=== PATIENT | male | born 1960 | race African-American/Black ===

== ENCOUNTER 2022-12-21 10:29 | Outpatient (CLI) | payer BC, SELFPAY ==
--- NOTE | ~2022-12-21 | MR_ITS ---
EXAMINATION: MR pelvis wo/w con DATE: 12/21/2022 11:49 INDICATION: Prostate cancer. TECHNIQUE: Magnetic resonance imaging (MRI) of the pelvis was performed without and with 14 mL MultiH ance intravenous contrast. COMPARISON: None. FINDINGS: There are no dilated loops of bowel. The bladder is markedly distended. The prostate is mildly enlarg ed. There are no pathologically enlarged lymph nodes. There is no free intraperitoneal fluid. IMPRESSION: 1. Mildly enlarged prostate. No evidence of metastatic disease. Reviewed, dictated and finalized at location A.
== END 2022-12-21 10:30 | disposition home or self-care (01) ==
PROVIDERS: PCP Nurse Practitioner Family; Visit Provider Radiology Radiation Oncology
DX: C61 Malignant neoplasm of prostate (principal)
CPT/HCPCS: 72197; A9577

== ENCOUNTER 2022-12-30 15:00 | Outpatient (CLI) | payer BC, SELFPAY ==
--- NOTE | ~2022-12-30 | US_ITS ---
EXAMINATION: US renal BI DATE: 12/30/2022 15:37 INDICATION: Malignant neoplasm of the prostate TECHNIQUE: Multiple ultrasound grayscale images of the kidneys were obtained. COMPARISON: None. FINDINGS: The right kidney measures 11.6 x 4.8 x 5.3 cm. The left kidney measures 10.5 x 4.5 x 4.6 cm. The kidn eys demonstrate normal echogenicity. There is no hydronephrosis in either kidney. No stones identifi ed. The bladder is normal with bilateral ureteral jets visualized on color Doppler. 1.7 cm and 1.3 cm anechoic cyst in the liver. IMPRESSION: 1. Normal kidneys without hydronephrosis. Reviewed, dictated and finalized at location A.
== END 2022-12-30 15:01 | disposition home or self-care (01) ==
LOC: ANHIMG 15:06
PROVIDERS: PCP Nurse Practitioner Family; Visit Provider Urology
DX: C61 Malignant neoplasm of prostate (principal)
CPT/HCPCS: 76775

== ENCOUNTER 2023-05-27 16:53 | Inpatient (IN) | payer BC, SELFPAY ==
[2023-05-27] VITALS (12 sets, daily range): BP systolic 147–175; BP diastolic 98–117; PULSE 81–97; RESP 16–26; TEMP 36.4–36.6; O2SAT 93–100; BMI 23.6
--- NOTE | ~2023-05-27 | US_ITS ---
EXAMINATION: US venous doppler [facility] DATE: 05/27/2023 18:18 INDICATION: Bilateral lower limb swelling TECHNIQUE: Rivera scale images without and with compression and Doppler images of the bilateral lower e xtremity veins were obtained. COMPARISON: None FINDINGS: The right common femoral vein, profunda femoral vein, femoral vein, popliteal vein, peroneal trunk, p osterior tibial veins, and greater saphenous vein are patent. The left common femoral vein, profunda femoral vein, femoral vein, popliteal vein, peroneal trunk, po sterior tibial veins, and greater saphenous vein are patent. IMPRESSION: 1. Patent bilateral lower extremity veins. No evidence of deep venous thrombosis. Reviewed, dictated and finalized at location F. LE SCM CONSULTANT IMPRESSION: 1. Patent bilateral lower extremity veins. No evidence of deep venous thrombosi s.
--- NOTE | ~2023-05-27 | CT_ITS ---
EXAMINATION: CTA chest PE abdomen pel DATE: 05/27/2023 18:26 INDICATION: Shortness of breath, TECHNIQUE: Computed tomography angiography (CTA) of the chest was performed with 100 mL Omnipaque-350 intravenous contrast timed to evaluate the pulmonary arteries. Subsequent postcontrast images of the abdomen and pelvis are obtained. Coronal maximum intensity projection 3D-reconstructions were create d by the technologist. The dose-length product (DLP) was 978.43 mGy-cm. Automated exposure control an d iterative reconstruction technique were employed. COMPARISON: None. FINDINGS: CTA CHEST: The pulmonary arteries are well-opacified. No pulmonary embolism is identified. There are small to moderate-sized pleural effusions. Cardiomegaly is noted. There is dependent atelectasis of t he lungs. There is no pneumothorax. Polyps are noted in the maxillary sinuses. No pathologically enla rged thoracic lymph nodes are identified. There is moderate thoracic spondylosis. ABDOMEN/PELVIS CT: There is heterogeneous enhancement of the liver which could reflect passive conges tive change. Cysts of the liver measure up to 16 mm in the right hepatic lobe. The gallbladder, pancr eas, and adrenal glands are normal. Heterogeneous mass of the spleen likely related to phase of contr ast. The left kidney is unremarkable. There is a 4 mm cyst of the right kidney. No pathologically enl arged abdominal or pelvic lymph nodes are identified. No free intraperitoneal gas or evidence of graeme l obstruction. The appendix is normal. There is diffuse anasarca. IMPRESSION: 1. No pulmonary embolus identified. 2. Small to moderate-sized pleural effusions with associated atelectasis of the lungs. 3. Diffuse anasarca. 4. Cardiomegaly. Reviewed, dictated and finalized at location F. CISE EQUIPMENT SPECIALIST
--- NOTE | ~2023-05-27 | XR_ITS ---
EXAMINATION: XR chest 2V DATE: 05/27/2023 17:56 INDICATION: Shortness of breath TECHNIQUE: AP and lateral views of the chest are obtained. COMPARISON: None available FINDINGS: Cardiomegaly is noted. There are small pleural effusions. There are minimal airspace opacit ies of the lung bases, left greater than right. There is no pneumothorax. There is mild thoracic spon dylosis. IMPRESSION: 1. Cardiomegaly. 2. Small pleural effusions with associated bibasilar airspace opacities, atelectasis versus pneumonia . Reviewed, dictated and finalized at location F. MANAGEMENT SUPERVISOR IMPRESSION: 1. Cardiomegaly. 2. Small pleural effusions with associated bibasilar airspace opacities, atelec tasis versus pneumonia.
--- NOTE | 2023-05-27 17:05 | ECG_ITS ---
Measurements Intervals [place] Rate: 93 P: 51 OR: 140 QRS: -14 QRSD: 97 T: 195 QT: 354 QTc: 440 Interpretive Statements SINUS RHYTHM LEFT ATRIAL ENLARGEMENT [-0.15mV P WAVE IN V1/V2] ST DEVIATION AND MODERATE T-WAVE ABNORMALITY, CONSIDER LATERAL ISCHEMIA [-0.1+ mV T WAVE IN I/aVL/V5/V6] ST DEVIATION AND MODERATE T-WAVE ABNORMALITY, CONSIDER INFERIOR ISCHEMIA [-0.1+ mV T WAVE IN II/aVF] NO PREVIOUS ECG AVAILABLE FOR COMPARISON Electronically Signed On 05-27-2023 19:19:39 LAWNMOWER REPAIR MECHANIC by Kezia Lni M.D.
--- NOTE | 2023-05-27 17:23 | ED.SOB ---
HPI - SOB/Dyspnea General Chief Complaint: Extremity Problem,Nontraumatic Stated Complaint: bilateral leg swelling/SOB Time Seen by Provider: 05/27/23 17:05 Source: patient Mode of arrival: ambulatory Limitations: no limitations History of Present Illness HPI Narrative: This is a 62 year old male that presents to the ER for dyspnea. Reports exertional dyspnea ongoing over the last 2 months. Reports recently finishing radiation for prostate cancer. He has also been feeling bloated and nauseous. Reports some diarrhe. Denies chest pain, vomiting. Related Data Home Medications Medication Instructions Recorded Confirmed glimepiride 1 mg tablet mg 05/27/23 metformin 500 mg tablet,extended mg PO 05/27/23 release 24 hr Allergies Allergy/AdvReac Type Severity Reaction Status Date / Time No Known Allergies Allergy Verified 05/27/23 17:04 Review of Systems Review of Systems: CONSTITUTIONAL: Denies fever CARDIOVASCULAR: Reports edema. Denies chest pain RESPIRATORY: Reports dyspnea. GASTROINTESTINAL: Reports abdominal pain, nausea and diarrhea. Denies vomiting All systems reviewed & are unremarkable except as noted in HPI and below PMFSH Past Medical History Medical History (Updated 05/27/23 @ 20:26 by Katherine Livingston PA-C) History of diabetes mellitus History of hypertension History of prostate cancer Social History Social History (Updated 05/27/23 @ 17:28 by Katherine Livingston PA-C) Smoking status: Never smoker Exam Narrative: GENERAL: Well-appearing, well-nourished, and in no acute distress. HEAD: Normocephalic, atraumatic. EYES: EOMI. ENT: Nares clear, no rhinorrhea or epistaxis. Mucous membranes moist. NECK: Supple. No adenopathy or masses. No JVD CHEST: No respiratory distress. Rales in the bilateral lower lobes. No wheezes or rhonchi HEART: Regular rate and rhythm. No murmur heard. Normal peripheral pulses. ABDOMEN: Soft, nontender, nondistended, normal active bowel sounds. EXTREMITIES: Normal range of motion. 1+ pitting edema to the bilateral lower extremities. Normal DP pulses. No erythema or warmth SKIN: Warm, dry, no rash. NEURO: No focal deficits. Alert and oriented x3. PSYCH: Normal mood and affect Course Course Emergency Course: Patient updated on his workup and agrees with plan of care Consultations Consultation #1: Spoke with hospitalist about patient and workup who accepts admission Date: 05/27/23 Vital Signs Vital signs: Vital Signs Temperature 97.5 F L 05/27/23 16:55 Pulse Rate 96 05/27/23 16:55 Respiratory Rate 18 05/27/23 16:55 Blood Pressure 164/107 H 05/27/23 16:55 Pulse Oximetry 98 05/27/23 16:55 Oxygen Delivery Room Air 05/27/23 16:55 Temperature 97.9 F 05/27/23 18:28 Pulse Rate 87 05/27/23 19:15 Respiratory Rate 16 05/27/23 19:15 Blood Pressure 148/98 H 05/27/23 18:46 Pulse Oximetry 98 05/27/23 19:15 Oxygen Delivery Room Air 05/27/23 16:55 MDM - SOB/Dyspnea MDM Narrative Medical decision making narrative: Patient presents to the emergency department for exertional dyspnea and lower extremity edema. Ongoing over the last 2 months. He is afebrile and nontoxic appearing. His vitals are stable. Patient with rales in the bilateral lower lobes and 1+ pitting edema to the bilateral extremities. CBC without leukocytosis. Metabolic panel with elevated blood glucose is 261. EKG shows T-wave inversions laterally. He does not have any chest pain. His baseline troponin was mildly elevated at 0.036. This will be trended. Elevation likely due to heart failure. His BNP is 8150. CTA chest without evidence of PE. Does show small to moderate bilateral pleural effusions with cardiomegaly. Bilateral lower extremity venous Doppler without evidence of DVT. Patient updated on his workup and agrees with plan of care. Will be admitted for further diuresis and workup. Spoke with hospitalist about patient and workup who accepts
[2023-05-27 17:35] LABS: Basophils Percent Auto 0.8 % (0.2-1.2); Eosinophils Absolute Auto 0.1 K/mm3 (0-0.3); Eosinophils Percent Auto 2.3 % (0-4.4); Hematocrit 45.8 % (42.0-52.0); Hemoglobin 14.9 g/dL (14.0-18.0); Immature Granulocyte Absolute 0.01 K/mm3 (0.00-0.031); Immature Granulocyte Percent A 0.3 % (0-0.5); Lymphocytes Absolute Auto 0.95 K/mm3 (0.9-3.2); Lymphocytes Percent Auto 23.8 % (18.3-44.2); Mean Corpuscular HGB Conc 32.5 g/dl (32-36); Mean Corpuscular Hemoglobin 29.6 pg (26-34); Mean Corpuscular Volume 90.9 fl (80-100); Mean Platelet Volume 11.8 fl (7.4-10.4); Monocytes Absolute Auto 0.4 K/mm3 (0.1-0.6); Monocytes Percent Auto 9.3 % (2.6-8.5); Neutrophils Absolute Auto 2.6 K/mm3 (1.3-6.7); Neutrophils Percent Auto 63.5 % (45.5-73.1); Platelet Count Result 242 k/mm3 (150-375); Red Blood Count 5.04 M/mm3 (4.6-6.20); Red Cell Distribution Width 12.6 % (11.5-14.5)
[2023-05-27 17:51] LABS: Alanine Aminotransferase 56 U/L (6-50); Albumin Level 3.9 g/dL (3.5-5.1); Alkaline Phosphatase 73 U/L (38-126); Anion Gap 3 mmol/L (8-16); Aspartate Amino Transferase 47 U/L (17-59); Bilirubin,Total 1.3 mg/dL (0.2-1.3); Blood Urea Nitrogen 18 mg/dL (9-20); Carbon Dioxide 31 mmol/L (22-30); Chloride 101 mmol/L (98-107); Estimated CRCL calculation 62 ml/min; Estimated Glomerular Filt Rate > 60; Glucose 251 mg/dL (65-110); Lipase 130 U/L (23-300); Potassium 4.2 mmol/L (3.4-5.0); Sodium 135 mmol/L (137-145)
[2023-05-27 17:55] LABS: INR 1.1; Prothrombin Time 14.3 Seconds (11.1-14.7)
[2023-05-27 17:56] LABS: Partial Thromboplastin Time 29.3 SECONDS (22.3-36.8)
[2023-05-27 18:02] LABS: NT Pro B Type Natriuretic Pept 8150 pg/mL (19.9-100); Troponin I 0.036 ng/mL (0.000-0.034)
[2023-05-27 18:05] LABS: D Dimer 0.77 ug/mL (<0.48)
[2023-05-27] MEDS: FUROSEMIDE INJ 40 MG/4 ML VIAL IV PUSH (20:11)
--- NOTE | 2023-05-27 20:39 | ECG_ITS ---
Measurements Intervals [place] Rate: 91 P: 52 VA: 143 QRS: -14 QRSD: 100 T: 198 QT: 357 QTc: 441 Interpretive Statements SINUS RHYTHM LEFT ATRIAL ENLARGEMENT [-0.15mV P-WAVE IN V1/V2] ST DEVIATION AND MODERATE T-WAVE ABNORMALITY, CONSIDER LATERAL ISCHEMIA [-0.1+ mV T- WAVE IN I/aVL/V5/V6] ST DEVIATION AND MODERATE T-WAVE ABNORMALITY, CONSIDER INFERIOR ISCHEMIA [-0.1+ mV T- WAVE IN II/aVF] COMPARED TO ECG 05/27/2023 17:30:52 NO SIGNIFICANT CHANGES Electronically Signed On 05-28-2023 15:38:07 KENO TERMINAL OPERATOR by Shannan Saleem M.D.
[2023-05-27 21:11] LABS: Troponin I 0.036 ng/mL (0.000-0.034)
--- NOTE | 2023-05-27 23:05 | PM.IMHP ---
H&P: HPI History of Present Illness Date/Time: 05/27/23 23:05 Chief Complaint: Leg swelling Narrative: 62-year-old male with a past medical history of hypertension and uncontrolled diabetes who presented to the ER via private vehicle with 1.5 to 2 months of progressive leg swelling and development of dyspnea on exertion. Patient reports a finished radiation therapy for his prostate cancer in February. Shortly after that time he began having some peripheral lower extremity swelling. His initially is swelling would go down at night but as time has progressed swelling has become more persistent it has gradually work his way up his legs and into his abdomen. It is been accompanied by dyspnea on exertion for the last 6 weeks or so. The dyspnea on exertion is getting progressively worse. He had denies any significant orthopnea. He denies any accompanying chest pain or palpitations. He does report increasing abdominal distension in his abdomen feels tight. He has been having normal bowel movements without any hematochezia or melena. He denies history of cirrhosis. He has not noticed any scrotal edema. He denies any episodes of chest pain that may have preceded onset of his swelling. He has not had any associated cough or congestion. He is a lifelong nonsmoker and denies any significant alcohol, stimulant use or exposures. He does have diabetes that was diagnosed last year at which time his A1c was 14. He has managed to get his A1c down to 8. He reports occasional tingling in his lower extremities but denies a diagnosis of peripheral neuropathy. Source of information comes from the patient who is a good historian and his significant other of over 20 years that is at bedside. Patient's case was discussed with his significant other (common all ) with the patient's permission. Review of Systems Review of Systems: 12 systems were reviewed with pertinent positives and negatives per HPI. Except as documented in the HPI, all other systems were reviewed and are negative. [facility] Past Medical History Medical History (Updated 05/28/23 @ 08:13 by Isis Rondon DO) Diabetes mellitus type 2 in nonobese Essential hypertension Prostate cancer Surgical History Surgical History (Updated 05/27/23 @ 23:14 by Isis Rondon DO) Hx of cholecystectomy Family History Family History (Updated 05/28/23 @ 08:11 by Isis Rondon DO) Other No significant family history Social History Social History (Updated 05/27/23 @ 23:16 by LAURA Hill Social History: Patient lives with his significant other of over 26 years. 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 He has 2 children ages 25 and 23. He denies any significant history of alcohol drug or tobacco use. Code status: Full code Surrogate decision maker: Smoking status: Never smoker Alcohol intake: never Substance use: never Do You Feel Safe in your Home?: Yes Lack of Transportation: No Lack of Food: Never True Current Housing: I Have Housing Concerned About Future Housing: No Difficulty Paying Gas/Electric Bills: No Difficulty Paying for Meds: No Currently Unemployed: No Education: High School Diploma/GED Difficulty w/ Childcare or Family Care: No Spiritual care concerns: No Meds Home Medications and Allergies Home Medications Medication Instructions Recorded Confirmed Type glimepiride 1 mg tablet 2 mg PO BIDAC 05/27/23 05/28/23 History metformin 500 mg tablet,extended 1,000 mg PO BID 05/27/23 05/28/23 History release 24 hr Allergies Allergy/AdvReac Type Severity Reaction Status Date / Time No Known Allergies Allergy Verified 05/27/23 17:04 Vital Signs Vital Signs - 24 hr 05/27/23 16:55 05/27/23 17:07 05/27/23 17:31 Temperature 97.5 F L Pulse Rate 96 97 92 Respiratory Rate 18 26 H 25 H Blood Pressure 164/107 H 175/117 H 158/106 H Pulse Oximetry 98 100 98 Oxygen Delivery Room Air 05/01
[2023-05-27 23:15] LABS: Glucose Point of Care 205 mg/dl (65-105)
--- NOTE | 2023-05-27 23:55 | ADMGEN ---
This patient, Bulmaro Doshi, was admitted to IMU Room 207-01. Patient/family oriented to hospital policies and general routines including ID bracelet, bed and alarms, visiting hours, pain management, procedures, bathroom and other care routines, personal items, smoking policy, room service/diet, and visiting hours. Information on how to activate the Rapid Response Team has been discussed. Patient/Family are encouraged to report perceived risks to care and to ask questions if they do not understand what they are told or what they should do.
[2023-05-28] VITALS (15 sets, daily range): BP systolic 115–159; BP diastolic 83–103; PULSE 72–92; RESP 14–19; TEMP 36.1–36.6; O2SAT 98–100
[2023-05-28 00:06] LABS: Glucose Point of Care 210 mg/dl (65-105)
[2023-05-28 01:33] LABS: Troponin I 0.035 ng/mL (0.000-0.034)
--- NOTE | 2023-05-28 06:00 | ECHO_ITS ---
Patient Info Name: Bulmaro Doshi Age: 62 years : 1960 Gender: Male Ht: 70 in Wt: 164 lbs BSA: 1.92 m2 HR: 78 bpm BP: 141 / 103 mmHg Heart Rhythm: Sinus Rhythm Technical Quality: Good Exam Date: 05/28/2023 10:02 AM Exam Location: Echo Lab Patient Status: Inpatient Admit Date: 05/27/2023 Staff Ordering Physician: Katherine Livingston PA-C Cutter Finisher: Margarita Khalil RDCS Attending Provider: Wan JeanB-aptiste MD Referring Physician: Miki OWENS; Exam Type: CA echo dop color flow w con Study Info Indications - fluid overload Complete two-dimensional, color flow and Doppler transthoracic echocardiogram is performed with contrast to opacify the left ventricle and to improve the deliniation of the left ventricle endocardial borders. Contrast/Agitated Saline Contrast/Ag. Saline: Definity Amount: 3.00 ml Summary 1. Definity contrast administered improved wall motion interpretation. 2. Left ventricular chamber dimension is severely enlarged. 3. Left ventricular systolic function is severely reduced, estimated at 15-20%. 4. The left ventricular diastolic function is abnormal. 5. E/e '37 is significantly elevated. 6. Left atrial chamber dimension is moderately enlarged. 7. Right atrial chamber dimension is mildly enlarged. 8. There is mild aortic valve sclerosis. 9. There is trace aortic valve regurgitation. 10. There is mild to moderate mitral valve regurgitation. 11. There is mild tricuspid valve regurgitation. 12. No pulmonary hypertension, estimated pulmonary arterial systolic pressure is 32 mmHg. 13. There is trace pulmonic regurgitation. 14. The aortic root size at the sinus of Valsalva is borderline dilated at 4.1 cm. 15. There is trivial pericardial effusion. Left Ventricle E/e '37 is significantly elevated. Definity contrast administered improved wall motion interpretation. Left ventricular chamber dimension is severely enlarged. Left ventricular systolic function is severely reduced, estimated at 15-20%. The left ventricular diastolic function is abnormal. Right Ventricle Right ventricular chamber dimension is normal. Right ventricular systolic function is normal. Left Atria Left atrial chamber dimension is moderately enlarged. Right Atria Right atrial chamber dimension is mildly enlarged. Aortic Valve The aortic valve is trileaflet. There is mild aortic valve sclerosis. There is no aortic valve stenosis. There is trace aortic valve regurgitation. Pulmonic Valve There is trace pulmonic regurgitation. Mitral Valve There is no mitral valve stenosis. There is mild to moderate mitral valve regurgitation. Tricuspid Valve There is mild tricuspid valve regurgitation. No pulmonary hypertension, estimated pulmonary arterial systolic pressure is 32 mmHg. Pericardium/Pleural There is trivial pericardial effusion. Inferior Vena Cava Normal inferior vena cava with >50% collapse upon inspiration consistent with normal right atrial pressure, 5 mmHg. Aorta The aortic root size at the sinus of Valsalva is borderline dilated at 4.1 cm. Left Ventricular Outflow Tract Name Value Normal LVOT 2D LVOT Diameter 2.23 cm LVOT Doppler LVOT Peak
[2023-05-28 08:22] LABS: Glucose Point of Care 143 mg/dl (65-105)
[2023-05-28 08:48] LABS: Hematocrit 47.3 % (42.0-52.0); Hemoglobin 15.3 g/dL (14.0-18.0); Mean Corpuscular HGB Conc 32.3 g/dl (32-36); Mean Corpuscular Hemoglobin 29.2 pg (26-34); Mean Corpuscular Volume 90.3 fl (80-100); Mean Platelet Volume 11.3 fl (7.4-10.4); Platelet Count Result 215 k/mm3 (150-375); Red Blood Count 5.24 M/mm3 (4.6-6.20); Red Cell Distribution Width 12.4 % (11.5-14.5); White Blood Count 3.1 K/mm3 (4.5-10.0)
[2023-05-28 08:57] LABS: Anion Gap 4 mmol/L (8-16); Blood Urea Nitrogen 14 mg/dL (9-20); Calcium 9.1 mg/dL (8.4-10.2); Carbon Dioxide 34 mmol/L (22-30); Chloride 100 mmol/L (98-107); Estimated CRCL calculation 68 ml/min; Estimated Glomerular Filt Rate > 60; Glucose 190 mg/dL (65-110); Potassium 3.4 mmol/L (3.4-5.0); Sodium 138 mmol/L (137-145)
--- NOTE | 2023-05-28 09:50 | PM.CNCAR ---
Assessment and Plan Assessment and plan (1) New onset of congestive heart failure: Code(s): I50.9 - Heart failure, unspecified Status: Acute Assessment and Plan: Unclear type of CHF at this time. CXR shows small pleural effusions. NTproBNP 8,150. Troponin flat and mild at .036. Received Lasix 40 mg IV daily. Obtain echo. Obtain lexiscan myoview tomorrow. (2) Uncontrolled hypertension: Code(s): I10 - Essential (primary) hypertension Status: Acute Assessment and Plan: Start Lisinopril 20 mg daily. (3) Uncontrolled diabetes mellitus: Qualifiers: Diabetes mellitus type: type 2 Glycemic state: with hyperglycemia Qualified Code(s): E11.65 - Type 2 diabetes mellitus with hyperglycemia Status: Acute Assessment and Plan: Managed by PCP. History of Present Illness History of Present Illness Consult date/time: 05/28/23 09:50 Reason For Visit: bilateral leg swelling/SOB Narrative: 62 yr old man presents to ER for sob. He does not have a PCP. He has a history of DM, hypertension. Reports in last 2 months he noted progressive EUB[place]KS and orthopnea, and edema of legs. He can walk only short distances now. Denies chest pain, dizziness, palpitations. Review of Systems Review of Systems: All systems reviewed & are unremarkable except as noted in HPI and below Constitutional: Constitutional: Reports as per HPI, Denies chills and Denies fever(s) Cardiovascular: Cardiovascular: Reports as per HPI, Denies chest pain, Denies irregular heart rhythm and Reports leg edema Respiratory: Respiratory: Reports as per HPI, Reports dyspnea and Reports dyspnea on exertion Gastrointestinal: Gastrointestinal: Reports as per HPI and Denies abdominal pain Genitourinary: Genitourinary: Reports as per HPI and Denies dysuria Musculoskeletal: Musculoskeletal: Reports as per HPI Neurologic: Reports as per HPI, Denies dizziness and Denies syncope [facility] Past Medical History Medical History (Updated 05/28/23 @ 08:13 by Isis Rondon DO) Diabetes mellitus type 2 in nonobese Essential hypertension Prostate cancer Surgical History Surgical History (Updated 05/27/23 @ 23:14 by Isis Rondon DO) Hx of cholecystectomy Family History Family History (Updated 05/28/23 @ 08:11 by Isis Rondon DO) Other No significant family history Social History Social History (Updated 05/27/23 @ 23:16 by Isis Rondon DO) Social History: Patient lives with his significant other of over 26 years. 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 He has 2 children ages 25 and 23. He denies any significant history of alcohol drug or tobacco use. Code status: Full code Surrogate decision maker: Smoking status: Never smoker Alcohol intake: never Substance use: never Do You Feel Safe in your Home?: Yes Lack of Transportation: No Lack of Food: Never True Current Housing: I Have Housing Concerned About Future Housing: No Difficulty Paying Gas/Electric Bills: No Difficulty Paying for Meds: No Currently Unemployed: No Education: High School Diploma/GED Difficulty w/ Childcare or Family Care: No Spiritual care concerns: No Meds Home Medications and Allergies Home Medications Medication Instructions Recorded Confirmed Type glimepiride 1 mg tablet 2 mg PO BIDAC 05/27/23 05/28/23 History metformin 500 mg tablet,extended 1,000 mg PO BID 05/27/23 05/28/23 History release 24 hr Allergies Allergy/AdvReac Type Severity Reaction Status Date / Time No Known Allergies Allergy Verified 05/27/23 17:04 Vital Signs Vital Signs - 24 hr 05/27/23 16:55 05/27/23 17:07 05/27/23 17:31 Temperature 97.5 F L Pulse Rate 96 97 92 Respiratory Rate 18 26 H 25 H Blood Pressure 164/107 H 175/117 H 158/106 H Pulse Oximetry 98 100 98 Oxygen Delivery Room Air 05/27/23 18:28 05/27/23 18:30 05/27/23 18:31 Temperature 97.9 F Pulse Rate 92 9
[2023-05-28] MEDS: PERFLUTREN LIPID MICROSPHERES 1.5 ML VIAL DILUTED TO 10 ML TOTAL VOLUME IV PUSH (10:20)
[2023-05-28] MEDS: ENOXAPARIN 40 MG/0.4 ML SYRINGE SUB-Q (10:24)
[2023-05-28] MEDS: lisinopriL 20 MG TABLET PO (10:24)
[2023-05-28] MEDS: FUROSEMIDE INJ 40 MG/4 ML VIAL IV PUSH (10:24)
--- NOTE | 2023-05-28 11:10 | IVDEFINITY ---
Prior to administration of IV Definity the patient was educated on the risks and benefits of the imaging enhancing agent including potential adverse side effects. The patient verbalized understanding. Allergies were verified. No exclusion criteria were identified and at least one of the following inclusion criteria were met: 1) physician request, 2) patient technically difficult to image (per the [place] [employer] guidelines of two or more segments not discernable within the apical view), or 3) questionable left ventricular function. ?
[2023-05-28 11:46] LABS: Glucose Point of Care 277 mg/dl (65-105)
[2023-05-28 13:10] LABS: Cholesterol 149 mg/dL (0-200); HDL Direct 57 mg/dL; Triglycerides 88 mg/dL (<150)
[2023-05-28 13:21] LABS: LDL Cholesterol Direct 72 mg/dL
[2023-05-28] MEDS: INSULIN ASPART (*BKC) 100 UNITS/ML SUB-Q ×2 (13:25→21:05)
[2023-05-28] MEDS: metFORMIN HCL XR 500 MG TAB.SR.24H 1000 MG PO (13:25)
[2023-05-28 16:27] LABS: Glucose Point of Care 168 mg/dl (65-105)
[2023-05-28] MEDS: GLIMEPIRIDE 2 MG TABLET PO (17:16)
--- NOTE | 2023-05-28 17:41 | PM.IMPN ---
Progress Note: A&P Assessment and Plan (1) Uncontrolled hypertension: Code(s): I10 - Essential (primary) hypertension Status: Acute (2) Uncontrolled diabetes mellitus: Qualifiers: Diabetes mellitus type: type 2 Glycemic state: with hyperglycemia Qualified Code(s): E11.65 - Type 2 diabetes mellitus with hyperglycemia Status: Acute (3) New onset of congestive heart failure: Code(s): I50.9 - Heart failure, unspecified Status: Acute (4) Personal history of noncompliance with medical treatment and regimen: Code(s): Z91.199 - Patient's noncompliance with other medical treatment and regimen due to unspecified reason Status: Acute Plan Place patient in medical unit under observation status Continuous cardiac tele-monitoring Patient has minimal, borderline elevation of cardiac enzymes times ?3 Full 2-D echo with color-flow and doppler ordered to evaluate cardiac structure and function Patient has severely reduced ejection fraction 15-20% on echo Started patient on Lasix 40 mg IV daily Strict I&Os Cardiology consultation given for evaluation, further treatment recommendations and work up Started on spironolactone for blood pressure control as per Cardiology Keep patient NPO after midnight for Lexiscan stress test in am Patient started on Accu-Cheks with Insulin coverage as per protocol Check hemoglobin A1c in am Given severely reduced EF, he would need LifeVest/AICD placement before discharge DC planning once patient is clinically stable and cleared by Cardiology ? Patient seen and examined at bedside during my morning rounds ? Collaborated with patient's nurse at the bedside in detail and addressed all concerns ? Labs, electrolytes, radiology, investigations and test results reviewed ? Consult/Nursing/Ancilliary notes on the chart reviewed and appreciated ? Spoke with patient/family at the bedside and answered all the questions that they had Repeat labs in a.m. Electrolyte replacement as per protocol. Patient will be monitored very closely on the floor. Further recommendations as per the hospital course. Personal history of noncompliance with medical treatment and regimen: STRICTLY advised patient to be compliant with meds and medical recommendations. Advised patient to get established with a PCP upon discharge, take care of meds, diet and bring patient's life back on track. Subjective Date/time seen: 05/28/23 17:41 Interval history: Patient lying in bed during my morning rounds undergoing 2D echo. Complains of feeling weak, tired and fatigued with bilateral leg swelling for couple months which is getting worse. Review of Systems Review of Systems: 14 systems were reviewed with pertinent positives and negatives per HPI. Except as documented in the HPI/progress notes, all other systems were reviewed and are negative. All systems reviewed & are unremarkable except as noted in HPI and below Exam Narrative: PHYSICAL EXAMINATION: Vital signs: Please see the chart General physical exam: Pleasant and cooperative with exam, appears weak tired and fatigue Head/eyes: Atraumatic, EOMI, PERRLA ENT: Moist mucous membranes, nasal passages clear Neck: Supple, full range of motion, trachea midline CVS: S1 + S2, regular rate and rhythm, no murmurs Respiratory: Bilaterally decreased air entry in both lung ortega, mild B/L crackles, symmetric chest expansion, ++ scattered bilateral rales Abdomen: Soft, non-tender, bowel sounds +ve, no organomegaly Extremities: No clubbing, no cyanosis, ++ bilateral pitting edema, no calf tenderness Musculoskeletal: Moves all, adequate range of motion, no muscle spasms Skin: Warm, dry, no jaundice, no cyanosis Neurological: Awake, alert, oriented x 3, cranial nerves II-XII intact, no focal neurological deficits Psychiatric: Normal mood, non suicidal Objective Data Vital Signs Vital Signs: Vital Signs - 24 hr 05/27/23 18:28 05/27/23 18:30 05/01
[2023-05-28] MEDS: POTASSIUM CHLORIDE 20 MEQ ER TABLET 40 MEQ PO (18:05)
[2023-05-28 21:00] LABS: Glucose Point of Care 207 mg/dl (65-105)
[2023-05-28] MEDS: carvediloL 3.125 MG TABLET PO (21:00)
[2023-05-29] VITALS (19 sets, daily range): BP systolic 122–143; BP diastolic 76–96; PULSE 82–90; RESP 13–23; TEMP 35.8–36.6; O2SAT 93–98
[2023-05-29 04:38] LABS: Basophils Percent Auto 0.7 % (0.2-1.2); Eosinophils Absolute Auto 0.2 K/mm3 (0-0.3); Eosinophils Percent Auto 5.2 % (0-4.4); Hematocrit 41.1 % (42.0-52.0); Hemoglobin 13.3 g/dL (14.0-18.0); Immature Granulocyte Absolute 0.01 K/mm3 (0.00-0.031); Immature Granulocyte Percent A 0.3 % (0-0.5); Lymphocytes Absolute Auto 0.69 K/mm3 (0.9-3.2); Lymphocytes Percent Auto 22.5 % (18.3-44.2); Mean Corpuscular HGB Conc 32.4 g/dl (32-36); Mean Corpuscular Hemoglobin 29.4 pg (26-34); Mean Corpuscular Volume 90.9 fl (80-100); Mean Platelet Volume 11.7 fl (7.4-10.4); Monocytes Absolute Auto 0.3 K/mm3 (0.1-0.6); Monocytes Percent Auto 10.1 % (2.6-8.5); Neutrophils Absolute Auto 1.9 K/mm3 (1.3-6.7); Neutrophils Percent Auto 61.2 % (45.5-73.1); Platelet Count Result 196 k/mm3 (150-375); Red Blood Count 4.52 M/mm3 (4.6-6.20); Red Cell Distribution Width 12.2 % (11.5-14.5); White Blood Count 3.1 K/mm3 (4.5-10.0)
[2023-05-29 04:51] LABS: Anion Gap 3 mmol/L (8-16); Blood Urea Nitrogen 19 mg/dL (9-20); Calcium 8.4 mg/dL (8.4-10.2); Carbon Dioxide 32 mmol/L (22-30); Chloride 100 mmol/L (98-107); Estimated CRCL calculation 68 ml/min; Estimated Glomerular Filt Rate > 60; Glucose 300 mg/dL (65-110); Magnesium 1.8 mg/dL (1.6-2.3); Potassium 3.9 mmol/L (3.4-5.0); Sodium 135 mmol/L (137-145)
[2023-05-29 05:07] LABS: Troponin I 0.381 ng/mL (0.000-0.034)
[2023-05-29 05:08] LABS: Hemoglobin A1C 9.7 % (<5.7)
[2023-05-29 07:43] LABS: Glucose Point of Care 245 mg/dl (65-105)
--- NOTE | 2023-05-29 08:00 | PM.PNCARD ---
Progress Note: A&P Assessment and Plan (1) New onset of congestive heart failure: Code(s): I50.9 - Heart failure, unspecified Status: Acute Assessment and Plan: Acute combined systolic and diastolic heart failure. CXR shows small pleural effusions. NTproBNP 8,150. Troponin flat and mild at .036. On Lasix 40 mg IV daily. 05/28/23 Echo: EF 15-20%, severe LVE, diastolic dysfunction with E/e' 37, mod LAE, mild JOSS, trace AI/PI, mild-mod MR, mild TR, aortic root 4.1 cm, trace pericardial effusion. Start Coreg, on lisinopril, jardiance, spironolactone. Discuss Life Vest for sudden cardiac arrest and he is agreeable. Given risk factors of DM, hypertension, and rise in troponin, for systolic dysfunction, recommend LHC. Risks/benefits/alternative to LHC discuss with patient and he is agreeable. Consult HCG for it. (2) Uncontrolled hypertension: Code(s): I10 - Essential (primary) hypertension Status: Acute Assessment and Plan: Start Lisinopril 20 mg daily. (3) Uncontrolled diabetes mellitus: Qualifiers: Diabetes mellitus type: type 2 Glycemic state: with hyperglycemia Qualified Code(s): E11.65 - Type 2 diabetes mellitus with hyperglycemia Status: Acute Assessment and Plan: Managed by PCP. Subjective Date/time seen: 05/29/23 08:00 Interval history: Reports breathing is improving with diuresis. No chest pain. Exam Const: General: cooperative, healthy appearing and comfortable Orientation/consciousness: oriented to person, oriented to place and oriented to time Resp: Auscultation: clear to auscultation bilaterally, no crackles, no rales, no rhonchi and no wheezes Cardio: Rate: regular rate Rhythm: regular rhythm Heart sounds: no murmurs Peripheral pulses: dorsalis pedis present Neuro: General: oriented to person, oriented to place and oriented to time Extrem: Right lower extremity: edema Left lower extremity: edema Other: Trace edema of legs Objective Data Vital Signs Vital Signs: Vital Signs - 24 hr 05/28/23 08:10 05/28/23 11:37 05/28/23 10:00 Temperature 97.5 F L 97.8 F Pulse Rate 89 86 87 Respiratory Rate 14 14 Blood Pressure 159/103 H 136/93 H Pulse Oximetry 98 100 Oxygen Delivery 05/28/23 12:00 05/28/23 14:00 05/28/23 16:00 Temperature Pulse Rate 92 82 85 Respiratory Rate Blood Pressure Pulse Oximetry Oxygen Delivery 05/28/23 15:52 05/28/23 21:00 05/28/23 21:00 Temperature 97 F L 97.8 F Pulse Rate 83 88 88 Respiratory Rate 18 19 Blood Pressure 115/83 136/90 Pulse Oximetry 100 100 Oxygen Delivery 05/28/23 20:00 05/28/23 20:00 05/28/23 22:00 Temperature Pulse Rate 82 88 75 Respiratory Rate 19 Blood Pressure Pulse Oximetry 100 Oxygen Delivery Room Air 05/29/23 00:00 05/29/23 00:00 05/29/23 00:00 Temperature 97.5 F L Pulse Rate 86 82 86 Respiratory Rate 18 18 Blood Pressure 123/76 Pulse Oximetry 98 98 Oxygen Delivery Room Air 05/29/23 02:00 05/29/23 04:00 05/29/23 04:00 Temperature Pulse Rate 83 84 83 Respiratory Rate 18 Blood Pressure Pulse Oximetry 98 Oxygen Delivery Room Air 05/29/23 04:00 05/29/23 06:00 05/29/23 07:35 Temperature 97.7 F 97.0 F L Pulse Rate 89 86 90 Respiratory Rate 18 22 H Blood Pressure 123/76 136/84 Pulse Oximetry 93 97 Oxygen Delivery Intake/Output Intake/Output: Intake & Output 05/26/23 05/27/23 05/28/23 05/29/23 23:59 23:59 23:59 23:59 Intake Total 1870 550 Output Total 700 Balance 1170 550 Meds/Results Medications: Active Medications Generic Name Dose Route Start Last Admin Trade Name Freq PRN Reason Stop Dose Admin Aspirin 81 mg 05/29/23 09:00 Aspirin 81 Mg Enteric Tablet PO QAM ALBERTINA Carvedilol 3.125 mg 05/28/23 21:00 05/28/23 21:00 Carvedilol 3.125 Mg Tablet PO 3.125 mg Q12HR [facility] Administration Dextrose 12.5 gm 05/28/23 08:01 Dextrose
--- NOTE | 2023-05-29 08:33 | WPDMODSED ---
Moderate Sedation Note-Pt Data Patient Data Diagnosis: Newly diagnosed cardiomyopathy Present Complaint: Shortness of breath Procedure to be performed/Plan: Left heart catheterization Allergies Allergy/AdvReac Type Severity Reaction Status Date / Time No Known Allergies Allergy Verified 05/27/23 17:04 Home Medications Medication Instructions Recorded Confirmed Type glimepiride 1 mg tablet 2 mg PO BIDAC 05/27/23 05/28/23 History metformin 500 mg tablet,extended 1,000 mg PO BID 05/27/23 05/28/23 History release 24 hr Current Medications: Active Medications Aspirin (Aspirin 81 Mg Enteric Tablet) 81 mg PO QAM [facility] Carvedilol (Carvedilol 3.125 Mg Tablet) 3.125 mg PO Q12HR [facility] Last Admin: 05/28/23 21:00 Dose: 3.125 mg Dextrose (Dextrose 50% 25 Gm/50 Ml Syringe) 12.5 gm IV PUSH PRN PRN; Protocol PRN Reason: Hypoglycemia Empagliflozin (Empagliflozin 10 Mg Tablet) 10 mg PO DAILY [facility] Enoxaparin Sodium (Enoxaparin 40 Mg/0.4 Ml Syringe) 40 mg SUB-Q DAILY [facility] Last Admin: 05/28/23 10:24 Dose: 40 mg Furosemide (Furosemide Inj 40 Mg/4 Ml Vial) 40 mg IV PUSH DAILY [facility] Last Admin: 05/28/23 10:24 Dose: 40 mg Glimepiride (Glimepiride 2 Mg Tablet) 2 mg PO BIDAC [facility] Last Admin: 05/29/23 05:25 Dose: Not Given Glucagon (Glucagon For Inj 1 Mg Vial) 1 mg IM PRN PRN; Protocol PRN Reason: Hypoglycemia Glucose (Glucose Oral Gel 15 Gm Of Glucse In 37.5 Gm Tube) 15 gm PO PRN PRN; Protocol PRN Reason: Hypoglycemia Dextrose (Dextrose 5% 1,000 Ml) 1,000 mls @ 100 mls/hr IVPB PRN PRN; Protocol PRN Reason: Hypoglycemia Insulin Aspart (Insulin Aspart (*Bkc) 100 Units/Ml) 3 - 6 units SUB-Q TIDWM [facility]; Protocol Last Admin: 05/29/23 08:01 Dose: Not Given Insulin Aspart (Insulin Aspart (*Bkc) 100 Units/Ml) 1 - 3 units SUB-Q HS [facility]; Protocol Last Admin: 05/28/23 21:05 Dose: 1 units Lisinopril (Lisinopril 20 Mg Tablet) 20 mg PO QAM [facility] Last Admin: 05/28/23 10:24 Dose: 20 mg Metformin HCl (Metformin Hcl Xr 500 Mg Tab.Sr.24h) 1,000 mg PO DAILY [facility] Last Admin: 05/28/23 13:25 Dose: 1,000 mg Spironolactone (Spironolactone 25 Mg Tablet) 25 mg PO QAM [facility] Sedation/Anesthesia: No previous sedation/anesthesia problems (including family history). [facility] Past Medical History Medical History (Updated 05/28/23 @ 17:45 by Wan Jean-Baptiste MD) Diabetes mellitus type 2 in nonobese Essential hypertension Prostate cancer Surgical History Surgical History (Updated 05/27/23 @ 23:14 by Isis Rondon DO) Hx of cholecystectomy Family History Family History (Updated 05/28/23 @ 08:11 by Isis Rondon DO) Other No significant family history Social History Social History (Updated 05/27/23 @ 23:16 by Isis Rondon DO) Social History: Patient lives with his significant other of over 26 years. 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 He has 2 children ages 25 and 23. He denies any significant history of alcohol drug or tobacco use. Code status: Full code Surrogate decision maker: Smoking status: Never smoker Alcohol intake: never Substance use: never Do You Feel Safe in your Home?: Yes Lack of Transportation: No Lack of Food: Never True Current Housing: I Have Housing Concerned About Future Housing: No Difficulty Paying Gas/Electric Bills: No Difficulty Paying for Meds: No Currently Unemployed: No Education: High School Diploma/GED Difficulty w/ Childcare or Family Care: No Spiritual care concerns: No Mod Sed Physical Exam Physical Exam Pre Procedural Exam: Normal: Appearance, Neck, Throat, Airway, Lungs, Heart Rhythm, Neuro Exam and Extremities and Variation: Heart Size (PMI laterally displaced) and Heart Rate (Sinus tachycardia) Hours since solid foods: 12 Hours since liquid intake: 12 Mallampati Classification: class II Internal Medicine - PN: Obj Da Vital Signs Vital Signs: Vital Signs - 24 hr 05/28/23 11:37 05/28/23 10:00 05/28/23
[2023-05-29] MEDS: ASPIRIN 81 MG ENTERIC TABLET PO (09:00)
[2023-05-29] MEDS: carvediloL 3.125 MG TABLET PO ×2 (09:00→20:32)
[2023-05-29] MEDS: lisinopriL 20 MG TABLET PO (09:00)
--- NOTE | 2023-05-29 12:09 | WPDCARDPROC ---
Cardiac Cath Procedure Note Date of procedure:: 05/29/23 Performing physician:: Mahin Ortiz MD Indication:: new diagnosis dilated cardiomyopathy Brief clinical history:: this is a 62-year-old man with a history of type 2 diabetes who presented to the hospital with dyspnea and has been found to have severe cardiomyopathy by ECHO. Coronary angiography has been recommended to determine if this is an ischemic process. Procedure Procedure performed:: Coronary angiography left ventriculography Angio-Seal to right femoral artery Sedation/Medication given:: fentanyl 25 mg Versed 2 mg case start time 11:50 a.m. case end time 12:05 p.m. sedation provided by Clara Ann RN, trained observer Access site:: right femoral artery Estimated blood loss:: 20 cc Procedure note:: patient was brought to the catheterization was observed a for the femoral triangle was prepared and draped in usual fashion. Anesthesia given with 1% lidocaine infiltrated locally. Using the modified Seldinger technique a 5 Spanish sheath was placed into the right common femoral artery. After this left heart catheterization was carried out. A 5 Spanish FL4 catheter was used to engage and inject the left coronary artery. The circumflex LAD were injected sub selectively with this catheter 1st circumflex and then the anterior descending. Following this the right coronary artery was engaged and injected using standard 5 Spanish JR4 catheter. This cineangiograms were then reviewed. A 5 Spanish angled pigtail catheter was then used to document left-sided hemodynamics and to inject the left ventriculogram in the 30 degree VELEZ projection. The case was then terminated. An angiogram was performed femoral artery with the sheath after which a 6 Spanish Angio-Seal device was deployed with good hemostatic result. There were no procedural complications and he tolerated the procedure well. There were no signs of groin hematoma when he left the cardiac catheterization lab. Findings:: Hemodynamics: Central aortic pressure is 1 28 over 66 left ventricle 128/3 end-diastolic pressure 18 there is no gradient on pullback across the aortic left ventricle: The left ventricle is markedly dilated there is profound global systolic noted with a visually estimated ejection fraction of approximately 15%. The left main coronary artery is very short but nicely patent the left anterior a large caliber vessel extending down to and around the apex the LAD and its branches are smooth and angiographically normal in appearance circumflex is a moderate caliber artery giving rise to the marginal branches. The circumflex system is smooth and angiographically normal in appearance right coronary artery is moderate to large caliber to the posterior circulation. The right coronary artery is also smooth and angiographically normal in appearance Conclusion:: 1. right coronary dominant circulation with no disease 2. left ventricular dilation with profound global systolic hypocontractility and low ejection fraction. Mahin Ortiz MD [facility]
[2023-05-29] MEDS: SODIUM CHLORIDE 0.9% IV 1,000 ML 125 ML IV CONT (12:54)
[2023-05-29 16:06] LABS: Glucose Point of Care 253 mg/dl (65-105)
[2023-05-29] MEDS: EMPAGLIFLOZIN 10 MG TABLET PO (17:01)
[2023-05-29] MEDS: GLIMEPIRIDE 2 MG TABLET PO (17:02)
[2023-05-29] MEDS: SPIRONOLACTONE 25 MG TABLET PO (17:02)
[2023-05-29] MEDS: INSULIN ASPART (*BKC) 100 UNITS/ML SUB-Q ×2 (17:03→20:36)
[2023-05-29] MEDS: FUROSEMIDE INJ 40 MG/4 ML VIAL IV PUSH (17:03)
[2023-05-29] MEDS: ENOXAPARIN 40 MG/0.4 ML SYRINGE SUB-Q (17:34)
--- NOTE | 2023-05-29 17:38 | PC.NURSE ---
This patient, Bulmaro Doshi, was received from IMU on 05/29/23 at 1738. Patient/family oriented to unit policies and routines
--- NOTE | 2023-05-29 18:45 | PM.IMPN ---
Progress Note: A&P Assessment and Plan (1) Uncontrolled hypertension: Code(s): I10 - Essential (primary) hypertension Status: Acute (2) Uncontrolled diabetes mellitus: Qualifiers: Diabetes mellitus type: type 2 Glycemic state: with hyperglycemia Qualified Code(s): E11.65 - Type 2 diabetes mellitus with hyperglycemia Status: Acute (3) New onset of congestive heart failure: Code(s): I50.9 - Heart failure, unspecified Status: Acute (4) Personal history of noncompliance with medical treatment and regimen: Code(s): Z91.199 - Patient's noncompliance with other medical treatment and regimen due to unspecified reason Status: Acute Plan Advanced patient to full inpatient status Continuous cardiac tele-monitoring Patient has minimal, borderline elevation of cardiac enzymes times ?3 Full 2-D echo with color-flow and doppler ordered to evaluate cardiac structure and function Patient has severely reduced ejection fraction 15-20% on echo Started patient on Lasix 40 mg IV daily Strict I&Os Cardiology consultation given for evaluation, further treatment recommendations and work up Started on spironolactone, carvedilol, Jardiance for blood pressure and CHF control as per Cardiology Cardiac catheterization today which showed moderate CAD without any significant stenosis Hemoglobin A1c is 9.7% which shows poorly controlled diabetes mellitus Continue with accu-Cheks with Insulin coverage as per protocol Advised patient regarding better control of his blood sugar levels Given severely reduced EF, he would need LifeVest/AICD placement before discharge DC planning once patient is clinically stable and cleared by Cardiology ? Patient seen and examined at bedside during my morning rounds ? Collaborated with patient's nurse at the bedside in detail and addressed all concerns ? Labs, electrolytes, radiology, investigations and test results reviewed ? Consult/Nursing/Ancilliary notes on the chart reviewed and appreciated ? Spoke with patient/family at the bedside and answered all the questions that they had Repeat labs in a.m. Electrolyte replacement as per protocol. Patient will be monitored very closely on the floor. Further recommendations as per the hospital course. Personal history of noncompliance with medical treatment and regimen: STRICTLY advised patient to be compliant with meds and medical recommendations. Advised patient to get established with a PCP upon discharge, take care of meds, diet and bring patient's life back on track. Time Spent With Patient Time with patient: 15 - 25 minutes Subjective Date/time seen: 05/29/23 18:45 Interval history: Patient seen and evaluated at bedside. Feeling a little better. Bilateral leg swellings are improving. He underwent cardiac catheterization today which ruled out any significant obstruction. Review of Systems Review of Systems: 14 systems were reviewed with pertinent positives and negatives per HPI. Except as documented in the HPI/progress notes, all other systems were reviewed and are negative. All systems reviewed & are unremarkable except as noted in HPI and below Exam Narrative: PHYSICAL EXAMINATION: Vital signs: Please see the chart General physical exam: Pleasant and cooperative with exam, appears weak tired and fatigue Head/eyes: Atraumatic, EOMI, PERRLA ENT: Moist mucous membranes, nasal passages clear Neck: Supple, full range of motion, trachea midline CVS: S1 + S2, regular rate and rhythm, no murmurs Respiratory: Bilaterally decreased air entry in both lung ortega, mild B/L crackles, symmetric chest expansion, + scattered bilateral rales Abdomen: Soft, non-tender, bowel sounds +ve, no organomegaly Extremities: No clubbing, no cyanosis, + bilateral pitting edema, no calf tenderness Musculoskeletal: Moves all, adequate range of motion, no muscle spasms Skin: Warm, dry, no jaundice, no cyanosis Neurological: Awake, alert, orie
--- NOTE | 2023-05-29 19:33 | PC.NURSE ---
This patient, Bulmaro Doshi, was transferred to [facility] on 05/29/23 at 1733. Personal belongings sent with patient. Report given to Ronnie KINCAID. Appropriate documentation sent with patient.
[2023-05-29 21:26] LABS: Glucose Point of Care 234 mg/dl (65-105)
[2023-05-30] VITALS (12 sets, daily range): BP systolic 107–138; BP diastolic 79–106; PULSE 75–90; RESP 15–18; TEMP 36.4–37.1; O2SAT 94–99
[2023-05-30 05:46] LABS: Basophils Percent Auto 0.8 % (0.2-1.2); Eosinophils Absolute Auto 0.1 K/mm3 (0-0.3); Eosinophils Percent Auto 3.7 % (0-4.4); Hematocrit 42.2 % (42.0-52.0); Hemoglobin 13.5 g/dL (14.0-18.0); Immature Granulocyte Absolute 0.01 K/mm3 (0.00-0.031); Immature Granulocyte Percent A 0.3 % (0-0.5); Lymphocytes Percent Auto 19.8 % (18.3-44.2); Mean Corpuscular Hemoglobin 29.2 pg (26-34); Mean Corpuscular Volume 91.1 fl (80-100); Mean Platelet Volume 11.1 fl (7.4-10.4); Monocytes Absolute Auto 0.4 K/mm3 (0.1-0.6); Monocytes Percent Auto 11.9 % (2.6-8.5); Neutrophils Absolute Auto 2.3 K/mm3 (1.3-6.7); Neutrophils Percent Auto 63.5 % (45.5-73.1); Platelet Count Result 195 k/mm3 (150-375); Red Blood Count 4.63 M/mm3 (4.6-6.20); Red Cell Distribution Width 12.2 % (11.5-14.5); White Blood Count 3.5 K/mm3 (4.5-10.0)
[2023-05-30 06:04] LABS: Anion Gap 2 mmol/L (8-16); Blood Urea Nitrogen 15 mg/dL (9-20); Calcium 8.7 mg/dL (8.4-10.2); Carbon Dioxide 34 mmol/L (22-30); Chloride 100 mmol/L (98-107); Estimated CRCL calculation 61 ml/min; Estimated Glomerular Filt Rate > 60; Glucose 156 mg/dL (65-110); Potassium 3.6 mmol/L (3.4-5.0); Sodium 136 mmol/L (137-145)
[2023-05-30] MEDS: GLIMEPIRIDE 2 MG TABLET PO ×2 (06:26→16:49)
[2023-05-30 07:34] LABS: Glucose Point of Care 152 mg/dl (65-105)
[2023-05-30] MEDS: ASPIRIN 81 MG ENTERIC TABLET PO (08:31)
[2023-05-30] MEDS: SPIRONOLACTONE 25 MG TABLET PO (08:31)
[2023-05-30] MEDS: carvediloL 3.125 MG TABLET PO ×2 (08:32→21:13)
[2023-05-30] MEDS: lisinopriL 20 MG TABLET PO (08:32)
[2023-05-30] MEDS: EMPAGLIFLOZIN 10 MG TABLET PO (08:32)
[2023-05-30] MEDS: ENOXAPARIN 40 MG/0.4 ML SYRINGE SUB-Q (08:32)
[2023-05-30] MEDS: FUROSEMIDE INJ 40 MG/4 ML VIAL IV PUSH (08:32)
--- NOTE | 2023-05-30 08:53 | PM.PNCARD ---
Progress Note: A&P Assessment and Plan (1) New onset of congestive heart failure: Code(s): I50.9 - Heart failure, unspecified Status: Acute Assessment and Plan: Non-ischemic cardiomyopathy, could be diabetic cardiomyopathy. Acute combined systolic and diastolic heart failure. CXR shows small pleural effusions. NTproBNP 8,150. Troponin flat and mild at .036. On Lasix 40 mg IV daily. 05/28/23 Echo: EF 15-20%, severe LVE, diastolic dysfunction with E/e' 37, mod LAE, mild JOSS, trace AI/PI, mild-mod MR, mild TR, aortic root 4.1 cm, trace pericardial effusion. 05/29/23 [facility] with Dr. Ortiz: Normal coronaries. On Coreg, on lisinopril, jardiance, spironolactone. Discuss Life Vest for sudden cardiac arrest and he is agreeable but it has to be authorized by his insurance first. Once he gets life vest or determined he cannot due to cost, then patient may be discharged from cardiology standpoint and f/u with me in 1 week. (2) Uncontrolled hypertension: Code(s): I10 - Essential (primary) hypertension Status: Acute Assessment and Plan: Stable. (3) Uncontrolled diabetes mellitus: Qualifiers: Diabetes mellitus type: type 2 Glycemic state: with hyperglycemia Qualified Code(s): E11.65 - Type 2 diabetes mellitus with hyperglycemia Status: Acute Assessment and Plan: Managed by PCP. Subjective Date/time seen: 05/30/23 08:53 Interval history: Denies chest pain or sob. Exam Const: General: cooperative, healthy appearing and comfortable Orientation/consciousness: oriented to person, oriented to place and oriented to time Resp: Auscultation: clear to auscultation bilaterally, no crackles, no rales, no rhonchi and no wheezes Cardio: Rate: regular rate Rhythm: regular rhythm Heart sounds: no murmurs Peripheral pulses: dorsalis pedis present Neuro: General: oriented to person, oriented to place and oriented to time Extrem: Right lower extremity: no edema Left lower extremity: no edema Objective Data Vital Signs Vital Signs: Vital Signs - 24 hr 05/29/23 09:00 05/29/23 10:00 05/29/23 12:22 Temperature Pulse Rate 88 84 85 Respiratory Rate 23 H Blood Pressure 124/92 H Pulse Oximetry 94 Oxygen Delivery Room Air 05/29/23 12:45 05/29/23 13:00 05/29/23 12:30 Temperature Pulse Rate 83 84 83 Respiratory Rate 13 16 18 Blood Pressure 128/91 H 132/92 H 128/91 H Pulse Oximetry 95 96 94 Oxygen Delivery Room Air Room Air Room Air 05/29/23 13:24 05/29/23 14:00 05/29/23 15:54 Temperature 97.1 F L 96.5 F L 97.3 F L Pulse Rate 87 89 88 Respiratory Rate 16 20 16 Blood Pressure 143/94 H 142/96 H 127/86 Pulse Oximetry 98 98 96 Oxygen Delivery 05/29/23 19:39 05/29/23 20:29 05/29/23 20:32 Temperature 97.8 F Pulse Rate 87 88 88 Respiratory Rate 18 Blood Pressure 122/76 Pulse Oximetry 93 Oxygen Delivery 05/29/23 20:00 05/30/23 00:00 05/30/23 05:52 Temperature 98.2 F Pulse Rate 80 84 Respiratory Rate 18 Blood Pressure 129/89 Pulse Oximetry 94 Oxygen Delivery Room Air 05/30/23 00:00 05/29/23 20:00 05/30/23 00:00 Temperature 97.6 F Pulse Rate 75 85 82 Respiratory Rate 18 Blood Pressure 122/79 Pulse Oximetry 98 Oxygen Delivery 05/30/23 04:00 05/30/23 08:32 05/30/23 08:30 Temperature Pulse Rate 83 81 Respiratory Rate Blood Pressure 136/106 H Pulse Oximetry Oxygen Delivery 05/30/23 08:38 Temperature Pulse Rate Respiratory Rate Blood Pressure Pulse Oximetry Oxygen Delivery Room Air Intake/Output Intake/Output: Intake & Output 05/27/23 05/28/23 05/29/23 05/30/23 23:59 23:59 23:59 23:59 Intake Total 0254 329 1600 Output Total 700 Balance 5861 137 4117 Meds/Results Medications: Active Medications Generic Name Dose Route Start Last Admin Trade Name Freq PRN Reason Stop Dose Admin Aspirin 81 mg 05/29/23 09:00 05/30/23 08:31 Aspirin 81 Mg Ente
[2023-05-30] MEDS: metFORMIN HCL XR 500 MG TAB.SR.24H 1000 MG PO (09:10)
[2023-05-30] MEDS: INSULIN ASPART (*BKC) 100 UNITS/ML SUB-Q ×2 (12:39→21:29)
[2023-05-30 16:42] LABS: Glucose Point of Care 159 mg/dl (65-105)
--- NOTE | 2023-05-30 17:10 | PM.IMPN ---
Progress Note: A&P Assessment and Plan (1) Uncontrolled hypertension: Code(s): I10 - Essential (primary) hypertension Status: Acute (2) Uncontrolled diabetes mellitus: Qualifiers: Diabetes mellitus type: type 2 Glycemic state: with hyperglycemia Qualified Code(s): E11.65 - Type 2 diabetes mellitus with hyperglycemia Status: Acute (3) New onset of congestive heart failure: Code(s): I50.9 - Heart failure, unspecified Status: Acute (4) Personal history of noncompliance with medical treatment and regimen: Code(s): Z91.199 - Patient's noncompliance with other medical treatment and regimen due to unspecified reason Status: Acute Plan Advanced patient to full inpatient status Continuous cardiac tele-monitoring Patient has minimal, borderline elevation of cardiac enzymes times ?3 Full 2-D echo with color-flow and doppler ordered to evaluate cardiac structure and function Patient has severely reduced ejection fraction 15-20% on echo Transitioned patient to Lasix 40 mg orally daily Strict I&Os Cardiology consultation given for evaluation, further treatment recommendations and work up Started on spironolactone, carvedilol, Jardiance for blood pressure and CHF control as per Cardiology Cardiac catheterization today which showed moderate CAD without any significant stenosis Hemoglobin A1c is 9.7% which shows poorly controlled diabetes mellitus Continue with accu-Cheks with Insulin coverage as per protocol Advised patient regarding better control of his blood sugar levels Given severely reduced EF, he would need LifeVest/AICD placement before discharge Patient is cleared for discharge by Cardiology pending LifeVest arrangement DC planning home once LifeVest is arranged ? Patient seen and examined at bedside during my morning rounds ? Collaborated with patient's nurse at the bedside in detail and addressed all concerns ? Labs, electrolytes, radiology, investigations and test results reviewed ? Consult/Nursing/Ancilliary notes on the chart reviewed and appreciated ? Spoke with patient/family at the bedside and answered all the questions that they had Repeat labs in a.m. Electrolyte replacement as per protocol. Patient will be monitored very closely on the floor. Further recommendations as per the hospital course. Personal history of noncompliance with medical treatment and regimen: STRICTLY advised patient to be compliant with meds and medical recommendations. Advised patient to get established with a PCP upon discharge, take care of meds, diet and bring patient's life back on track. Subjective Date/time seen: 05/30/23 17:10 Interval history: Patient lying in bed watching a movie on his laptop. No major issues. Shortness of breath has improved. Review of Systems Review of Systems: 14 systems were reviewed with pertinent positives and negatives per HPI. Except as documented in the HPI/progress notes, all other systems were reviewed and are negative. All systems reviewed & are unremarkable except as noted in HPI and below Exam Narrative: PHYSICAL EXAMINATION: Vital signs: Please see the chart General physical exam: Pleasant and cooperative with exam, appears weak tired and fatigue Head/eyes: Atraumatic, EOMI, PERRLA ENT: Moist mucous membranes, nasal passages clear Neck: Supple, full range of motion, trachea midline CVS: S1 + S2, regular rate and rhythm, no murmurs Respiratory: Bilaterally decreased air entry in both lung ortega, mild B/L crackles, symmetric chest expansion, + scattered bilateral rales Abdomen: Soft, non-tender, bowel sounds +ve, no organomegaly Extremities: No clubbing, no cyanosis, + bilateral pitting edema, no calf tenderness Musculoskeletal: Moves all, adequate range of motion, no muscle spasms Skin: Warm, dry, no jaundice, no cyanosis Neurological: Awake, alert, oriented x 3, cranial nerves II-XII intact, no focal neurological deficits Psychiatric: Normal
[2023-05-30 21:20] LABS: Glucose Point of Care 239 mg/dl (65-105)
[2023-05-31] VITALS (10 sets, daily range): BP systolic 119–141; BP diastolic 72–90; PULSE 75–86; RESP 16–18; TEMP 36.2–36.7; O2SAT 97–100
[2023-05-31 05:28] LABS: Basophils Percent Auto 0.6 % (0.2-1.2); Eosinophils Absolute Auto 0.1 K/mm3 (0-0.3); Hematocrit 42.5 % (42.0-52.0); Hemoglobin 13.8 g/dL (14.0-18.0); Immature Granulocyte Absolute 0.01 K/mm3 (0.00-0.031); Immature Granulocyte Percent A 0.3 % (0-0.5); Lymphocytes Absolute Auto 0.76 K/mm3 (0.9-3.2); Lymphocytes Percent Auto 21.9 % (18.3-44.2); Mean Corpuscular HGB Conc 32.5 g/dl (32-36); Mean Corpuscular Hemoglobin 29.4 pg (26-34); Mean Corpuscular Volume 90.4 fl (80-100); Mean Platelet Volume 11.2 fl (7.4-10.4); Monocytes Absolute Auto 0.5 K/mm3 (0.1-0.6); Monocytes Percent Auto 13.8 % (2.6-8.5); Neutrophils Absolute Auto 2.1 K/mm3 (1.3-6.7); Neutrophils Percent Auto 59.4 % (45.5-73.1); Platelet Count Result 193 k/mm3 (150-375); Red Cell Distribution Width 12.3 % (11.5-14.5); White Blood Count 3.5 K/mm3 (4.5-10.0)
[2023-05-31 05:40] LABS: Anion Gap 3 mmol/L (8-16); Blood Urea Nitrogen 17 mg/dL (9-20); Calcium 9.1 mg/dL (8.4-10.2); Carbon Dioxide 34 mmol/L (22-30); Chloride 99 mmol/L (98-107); Estimated CRCL calculation 67 ml/min; Estimated Glomerular Filt Rate > 60; Glucose 151 mg/dL (65-110); Potassium 3.6 mmol/L (3.4-5.0); Sodium 136 mmol/L (137-145)
[2023-05-31] MEDS: GLIMEPIRIDE 2 MG TABLET PO ×2 (06:03→16:56)
--- NOTE | 2023-05-31 08:05 | PM.PNCARD ---
Progress Note: A&P Assessment and Plan (1) New onset of congestive heart failure: Code(s): I50.9 - Heart failure, unspecified Status: Acute Assessment and Plan: Non-ischemic cardiomyopathy, could be diabetic cardiomyopathy. Acute combined systolic and diastolic heart failure. CXR shows small pleural effusions. NTproBNP 8,150. Troponin flat and mild at .036. On Lasix 40 mg IV daily. 05/28/23 Echo: EF 15-20%, severe LVE, diastolic dysfunction with E/e' 37, mod LAE, mild JOSS, trace AI/PI, mild-mod MR, mild TR, aortic root 4.1 cm, trace pericardial effusion. 05/29/23 [facility] with Dr. Ortiz: Normal coronaries. On Coreg, on lisinopril, jardiance, spironolactone. Discuss Life Vest for sudden cardiac arrest and he is agreeable but it has to be authorized by his insurance first. Once he gets life vest or determined he cannot due to cost, then patient may be discharged from cardiology standpoint and f/u with me in 1 week. Will sign off, please call with any questions. (2) Uncontrolled hypertension: Code(s): I10 - Essential (primary) hypertension Status: Acute Assessment and Plan: Stable. (3) Uncontrolled diabetes mellitus: Qualifiers: Diabetes mellitus type: type 2 Glycemic state: with hyperglycemia Qualified Code(s): E11.65 - Type 2 diabetes mellitus with hyperglycemia Status: Acute Assessment and Plan: Managed by PCP. Subjective Date/time seen: 05/31/23 08:05 Interval history: Denies chest pain or sob. He feels great. Exam Const: General: cooperative, healthy appearing and comfortable Orientation/consciousness: oriented to person, oriented to place and oriented to time Resp: Auscultation: clear to auscultation bilaterally, no crackles, no rales, no rhonchi and no wheezes Cardio: Rate: regular rate Rhythm: regular rhythm Heart sounds: no murmurs Peripheral pulses: dorsalis pedis present Neuro: General: oriented to person, oriented to place and oriented to time Extrem: Right lower extremity: no edema Left lower extremity: no edema Other: Trace edema of legs Objective Data Vital Signs Vital Signs: Vital Signs - 24 hr 05/30/23 08:32 05/30/23 08:30 05/30/23 08:38 Temperature Pulse Rate 81 Respiratory Rate Blood Pressure 136/106 H Pulse Oximetry Oxygen Delivery Room Air 05/30/23 12:15 05/30/23 12:00 05/30/23 16:10 Temperature 98.6 F 97.6 F Pulse Rate 88 88 80 Respiratory Rate 15 18 Blood Pressure 138/92 H 107/81 Pulse Oximetry 99 94 Oxygen Delivery 05/30/23 16:00 05/30/23 21:13 05/30/23 21:13 Temperature 98.8 F Pulse Rate 83 88 84 Respiratory Rate 18 Blood Pressure 133/86 Pulse Oximetry 98 Oxygen Delivery 05/30/23 20:00 05/30/23 20:00 05/31/23 00:00 Temperature Pulse Rate 90 75 Respiratory Rate Blood Pressure Pulse Oximetry Oxygen Delivery Room Air 05/31/23 04:00 05/31/23 05:53 Temperature 97.3 F L Pulse Rate 81 84 Respiratory Rate 16 Blood Pressure 141/90 H Pulse Oximetry 100 Oxygen Delivery Intake/Output Intake/Output: Intake & Output 05/28/23 05/29/23 05/30/23 05/31/23 23:59 23:59 23:59 23:59 Intake Total 7200 392 2044 50 Output Total 700 Balance 7659 471 4152 50 Meds/Results Medications: Active Medications Generic Name Dose Route Start Last Admin Trade Name Freq PRN Reason Stop Dose Admin Carvedilol 3.125 mg 05/28/23 21:00 05/30/23 21:13 Carvedilol 3.125 Mg Tablet PO 3.125 mg Q12HR ALBERTINA Administration Dextrose 12.5 gm 05/28/23 08:01 Dextrose 50% 25 Gm/50 Ml Syringe IV PUSH PRN PRN Hypoglycemia Protocol Empagliflozin 10 mg 05/29/23 09:00 05/30/23 08:32 Empagliflozin 10 Mg Tablet PO 10 mg DAILY ALBERTINA Administration Enoxaparin Sodium 40 mg 05/28/23 09:00 05/30/23 08:32 Enoxaparin 40 Mg/0.4 Ml Syringe SUB-Q 40 mg DAILY ALBERTINA Administration Furosemide 40 mg 05/30/23 09:00
[2023-05-31 08:49] LABS: Glucose Point of Care 191 mg/dl (65-105)
[2023-05-31] MEDS: carvediloL 3.125 MG TABLET PO ×2 (09:18→21:29)
[2023-05-31] MEDS: metFORMIN HCL XR 500 MG TAB.SR.24H 1000 MG PO (09:19)
[2023-05-31] MEDS: SPIRONOLACTONE 25 MG TABLET PO (09:19)
[2023-05-31] MEDS: lisinopriL 20 MG TABLET PO (09:19)
[2023-05-31] MEDS: EMPAGLIFLOZIN 10 MG TABLET PO (09:19)
[2023-05-31] MEDS: ENOXAPARIN 40 MG/0.4 ML SYRINGE SUB-Q (09:19)
[2023-05-31] MEDS: FUROSEMIDE 40 MG TABLET PO (09:19)
[2023-05-31 12:48] LABS: Glucose Point of Care 331 mg/dl (65-105)
[2023-05-31] MEDS: INSULIN ASPART (*BKC) 100 UNITS/ML SUB-Q (13:01)
--- NOTE | 2023-05-31 15:55 | PM.IMPN ---
Progress Note: A&P Assessment and Plan (1) Uncontrolled hypertension: Code(s): I10 - Essential (primary) hypertension Status: Acute (2) Uncontrolled diabetes mellitus: Qualifiers: Diabetes mellitus type: type 2 Glycemic state: with hyperglycemia Qualified Code(s): E11.65 - Type 2 diabetes mellitus with hyperglycemia Status: Acute (3) New onset of congestive heart failure: Code(s): I50.9 - Heart failure, unspecified Status: Acute (4) Personal history of noncompliance with medical treatment and regimen: Code(s): Z91.199 - Patient's noncompliance with other medical treatment and regimen due to unspecified reason Status: Acute Plan Advanced patient to full inpatient status Continuous cardiac tele-monitoring Patient has minimal, borderline elevation of cardiac enzymes times ?3 Full 2-D echo with color-flow and doppler ordered to evaluate cardiac structure and function Patient has severely reduced ejection fraction 15-20% on echo Transitioned patient to Lasix 40 mg orally daily Strict I&Os Cardiology consultation given for evaluation, further treatment recommendations and work up Started on spironolactone, carvedilol, Jardiance for blood pressure and CHF control as per Cardiology Cardiac catheterization today which showed moderate CAD without any significant stenosis Hemoglobin A1c is 9.7% which shows poorly controlled diabetes mellitus Continue with accu-Cheks with Insulin coverage as per protocol Advised patient regarding better control of his blood sugar levels Given severely reduced EF, he would need LifeVest/AICD placement before discharge Patient is cleared for discharge by Cardiology pending LifeVest arrangement Spoke with care coordination ... It can take a couple of days before LifeVest is arranged DC planning home once LifeVest is available ? Patient seen and examined at bedside during my morning rounds ? Collaborated with patient's nurse at the bedside in detail and addressed all concerns ? Labs, electrolytes, radiology, investigations and test results reviewed ? Consult/Nursing/Ancilliary notes on the chart reviewed and appreciated ? Spoke with patient/family at the bedside and answered all the questions that they had Repeat labs in a.m. Electrolyte replacement as per protocol. Patient will be monitored very closely on the floor. Further recommendations as per the hospital course. Personal history of noncompliance with medical treatment and regimen: STRICTLY advised patient to be compliant with meds and medical recommendations. Advised patient to get established with a PCP upon discharge, take care of meds, diet and bring patient's life back on track. I am signing off. Patient's medical care will be taken over by my covering hospitalist attending in am. Time Spent With Patient Time with patient: 15 - 25 minutes Subjective Date/time seen: 05/31/23 15:55 Interval history: Patient lying in bed during my rounds. No major issues. Awaiting arrangements for LifeVest. Review of Systems Review of Systems: 14 systems were reviewed with pertinent positives and negatives per HPI. Except as documented in the HPI/progress notes, all other systems were reviewed and are negative. All systems reviewed & are unremarkable except as noted in HPI and below Exam Narrative: PHYSICAL EXAMINATION: Vital signs: Please see the chart General physical exam: Pleasant and cooperative with exam, appears weak tired and fatigue Head/eyes: Atraumatic, EOMI, PERRLA ENT: Moist mucous membranes, nasal passages clear Neck: Supple, full range of motion, trachea midline CVS: S1 + S2, regular rate and rhythm, no murmurs Respiratory: Bilaterally decreased air entry in both lung ortega, mild B/L crackles, symmetric chest expansion, + scattered bilateral rales Abdomen: Soft, non-tender, bowel sounds +ve, no organomegaly Extremities: No clubbing, no cyanosis, + bilateral pitting edema, no calf te
[2023-05-31 17:16] LABS: Glucose Point of Care 125 mg/dl (65-105)
[2023-05-31 20:29] LABS: Glucose Point of Care 305 mg/dl (65-105)
[2023-05-31 22:15] LABS: Glucose Point of Care 193 mg/dl (65-105)
[2023-06-01] VITALS (10 sets, daily range): BP systolic 112–133; BP diastolic 69–82; PULSE 66–86; RESP 14–21; TEMP 36.6–37.1; O2SAT 99–100
[2023-06-01] MEDS: GLIMEPIRIDE 2 MG TABLET PO ×2 (05:36→17:44)
[2023-06-01 08:45] LABS: Glucose Point of Care 126 mg/dl (65-105)
[2023-06-01] MEDS: SPIRONOLACTONE 25 MG TABLET PO (09:16)
[2023-06-01] MEDS: carvediloL 3.125 MG TABLET PO ×2 (09:16→21:17)
[2023-06-01] MEDS: lisinopriL 20 MG TABLET PO (09:16)
[2023-06-01] MEDS: ENOXAPARIN 40 MG/0.4 ML SYRINGE SUB-Q (09:16)
[2023-06-01] MEDS: metFORMIN HCL XR 500 MG TAB.SR.24H 1000 MG PO (09:16)
[2023-06-01] MEDS: EMPAGLIFLOZIN 10 MG TABLET PO (09:16)
[2023-06-01] MEDS: FUROSEMIDE 40 MG TABLET PO (09:16)
--- NOTE | 2023-06-01 09:31 | PM.IMPN ---
Progress Note: A&P Assessment and Plan (1) New onset of congestive heart failure: Code(s): I50.9 - Heart failure, unspecified Status: Acute Assessment and Plan: Acute systolic CHF exacerbation status post cardiac catheterization cardiology was consulted maximum medical management see above Oral diuresis Life vest for discharge (2) Uncontrolled diabetes mellitus: Qualifiers: Diabetes mellitus type: type 2 Glycemic state: with hyperglycemia Qualified Code(s): E11.65 - Type 2 diabetes mellitus with hyperglycemia Status: Acute Assessment and Plan: Insulin sliding scale (3) Uncontrolled hypertension: Code(s): I10 - Essential (primary) hypertension Status: Acute Assessment and Plan: Beta-nacho lisinopril (4) Personal history of noncompliance with medical treatment and regimen: Code(s): Z91.199 - Patient's noncompliance with other medical treatment and regimen due to unspecified reason Status: Acute Assessment and Plan: Counseling Subjective Date/time seen: 06/01/23 09:31 Interval history: 2-year-old male with a past medical history of hypertension and uncontrolled diabetes who presented to the ER via private vehicle with 1.5 to 2 months of progressive leg swelling and development of dyspnea on exertion.? Patient reports a finished radiation therapy for his prostate cancer in February.? Shortly after that time he began having some peripheral lower extremity swelling.? His initially is swelling would go down at night but as time has progressed swelling has become more persistent it has gradually work his way up his legs and into his abdomen.? It is been accompanied by dyspnea on exertion for the last 6 weeks or so.? The dyspnea on exertion is getting progressively worse.? He had denies any significant orthopnea.? He denies any accompanying chest pain or palpitations.? He does report increasing abdominal distension in his abdomen feels tight.? He has been having normal bowel movements without any hematochezia or melena.? He denies history of cirrhosis.? He has not noticed any scrotal edema.? He denies any episodes of chest pain that may have preceded onset of his swelling.? He has not had any associated cough or congestion.? He is a lifelong nonsmoker and denies any significant alcohol, stimulant use or exposures.? He does have diabetes that was diagnosed last year at which time his A1c was 14.? He has managed to get his A1c down to 8.? He reports occasional tingling in his lower extremities but denies a diagnosis of peripheral neuropathy. Patient seen and examined Patient feels better today Patient denies fever headache chest pain I am seeing the patient for CHF Exam Narrative: Alert Chest decreased air entry bilateral Abdomen nontender nondistended CVS S1 + S2 Minimal lower extremity edema Objective Data Vital Signs Vital Signs: Vital Signs - 24 hr 05/31/23 12:00 05/31/23 12:00 05/31/23 16:00 Temperature 97.1 F L Pulse Rate 80 80 81 Respiratory Rate 16 Blood Pressure 130/82 Pulse Oximetry 100 Oxygen Delivery 05/31/23 16:00 05/31/23 21:25 05/31/23 21:29 Temperature 98.1 F 98.1 F Pulse Rate 86 80 85 Respiratory Rate 18 16 Blood Pressure 122/72 119/77 Pulse Oximetry 97 97 Oxygen Delivery 05/31/23 20:00 05/31/23 20:00 06/01/23 00:00 Temperature Pulse Rate 86 85 77 Respiratory Rate 16 Blood Pressure Pulse Oximetry 97 Oxygen Delivery Room Air 06/01/23 03:07 06/01/23 04:00 06/01/23 09:16 Temperature 98.2 F Pulse Rate 79 66 81 Respiratory Rate 14 Blood Pressure 112/69 Pulse Oximetry 99 Oxygen Delivery Intake/Output Intake/Output: Intake & Output 05/29/23 05/30/23 05/31/23 06/01/23 23:59 23:59 23:59 23:59 Intake Total 940 3060 1728 100 Balance 940 3060 1728 100 Meds/Results Medications: Active Medications Generic Name Dose Route Start Last Admin Trade Name
[2023-06-01 10:07] LABS: Basophils Percent Auto 0.7 % (0.2-1.2); Eosinophils Absolute Auto 0.1 K/mm3 (0-0.3); Eosinophils Percent Auto 2.2 % (0-4.4); Hemoglobin 14.4 g/dL (14.0-18.0); Immature Granulocyte Absolute 0.02 K/mm3 (0.00-0.031); Immature Granulocyte Percent A 0.5 % (0-0.5); Lymphocytes Absolute Auto 0.72 K/mm3 (0.9-3.2); Lymphocytes Percent Auto 17.5 % (18.3-44.2); Mean Corpuscular HGB Conc 31.3 g/dl (32-36); Mean Corpuscular Hemoglobin 28.9 pg (26-34); Mean Corpuscular Volume 92.4 fl (80-100); Mean Platelet Volume 11.4 fl (7.4-10.4); Monocytes Absolute Auto 0.5 K/mm3 (0.1-0.6); Monocytes Percent Auto 12.9 % (2.6-8.5); Neutrophils Absolute Auto 2.7 K/mm3 (1.3-6.7); Neutrophils Percent Auto 66.2 % (45.5-73.1); Platelet Count Result 214 k/mm3 (150-375); Red Blood Count 4.98 M/mm3 (4.6-6.20); Red Cell Distribution Width 12.4 % (11.5-14.5); White Blood Count 4.1 K/mm3 (4.5-10.0)
[2023-06-01 10:21] LABS: Alanine Aminotransferase 27 U/L (6-50); Albumin Level 3.5 g/dL (3.5-5.1); Alkaline Phosphatase 71 U/L (38-126); Anion Gap 5 mmol/L (8-16); Aspartate Amino Transferase 30 U/L (17-59); Bilirubin,Total 1.3 mg/dL (0.2-1.3); Blood Urea Nitrogen 17 mg/dL (9-20); Calcium 8.9 mg/dL (8.4-10.2); Carbon Dioxide 30 mmol/L (22-30); Chloride 98 mmol/L (98-107); Estimated CRCL calculation 59 ml/min; Estimated Glomerular Filt Rate > 60; Glucose 241 mg/dL (65-110); Potassium 4.3 mmol/L (3.4-5.0); Sodium 133 mmol/L (137-145)
[2023-06-01 12:19] LABS: Glucose Point of Care 421 mg/dl (65-105)
[2023-06-01] MEDS: INSULIN ASPART (*BKC) 100 UNITS/ML SUB-Q ×2 (12:30→21:17)
[2023-06-01 17:28] LABS: Glucose Point of Care 179 mg/dl (65-105)
[2023-06-02] VITALS (7 sets, daily range): BP systolic 117–134; BP diastolic 75–94; PULSE 79–83; RESP 18–20; TEMP 36.2–37; O2SAT 98–100
[2023-06-02] MEDS: GLIMEPIRIDE 2 MG TABLET PO (05:56)
[2023-06-02 06:36] LABS: Alanine Aminotransferase 25 U/L (6-50); Albumin Level 3.4 g/dL (3.5-5.1); Alkaline Phosphatase 73 U/L (38-126); Anion Gap 7 mmol/L (8-16); Aspartate Amino Transferase 28 U/L (17-59); Bilirubin,Total 1.1 mg/dL (0.2-1.3); Blood Urea Nitrogen 19 mg/dL (9-20); Calcium 8.9 mg/dL (8.4-10.2); Carbon Dioxide 30 mmol/L (22-30); Chloride 99 mmol/L (98-107); Estimated CRCL calculation 59 ml/min; Estimated Glomerular Filt Rate > 60; Glucose 116 mg/dL (65-110); Magnesium 2.2 mg/dL (1.6-2.3); Potassium 4.1 mmol/L (3.4-5.0); Sodium 136 mmol/L (137-145)
[2023-06-02 06:49] LABS: Basophils Percent Auto 1.1 % (0.2-1.2); Eosinophils Absolute Auto 0.1 K/mm3 (0-0.3); Eosinophils Percent Auto 2.5 % (0-4.4); Hematocrit 44.2 % (42.0-52.0); Hemoglobin 14.1 g/dL (14.0-18.0); Immature Granulocyte Absolute 0.01 K/mm3 (0.00-0.031); Immature Granulocyte Percent A 0.3 % (0-0.5); Lymphocytes Absolute Auto 0.85 K/mm3 (0.9-3.2); Lymphocytes Percent Auto 23.2 % (18.3-44.2); Mean Corpuscular HGB Conc 31.9 g/dl (32-36); Mean Corpuscular Volume 90.8 fl (80-100); Mean Platelet Volume 11.3 fl (7.4-10.4); Monocytes Absolute Auto 0.5 K/mm3 (0.1-0.6); Monocytes Percent Auto 14.4 % (2.6-8.5); Neutrophils Absolute Auto 2.2 K/mm3 (1.3-6.7); Neutrophils Percent Auto 58.5 % (45.5-73.1); Platelet Count Result 207 k/mm3 (150-375); Red Blood Count 4.87 M/mm3 (4.6-6.20); Red Cell Distribution Width 12.3 % (11.5-14.5); White Blood Count 3.7 K/mm3 (4.5-10.0)
[2023-06-02 07:10] LABS: Glucose Point of Care 214 mg/dl (65-105)
[2023-06-02 08:18] LABS: Glucose Point of Care 120 mg/dl (65-105)
[2023-06-02] MEDS: lisinopriL 20 MG TABLET PO (09:02)
[2023-06-02] MEDS: metFORMIN HCL XR 500 MG TAB.SR.24H 1000 MG PO (09:02)
[2023-06-02] MEDS: EMPAGLIFLOZIN 10 MG TABLET PO (09:02)
[2023-06-02] MEDS: SPIRONOLACTONE 25 MG TABLET PO (09:02)
[2023-06-02] MEDS: FUROSEMIDE 40 MG TABLET PO (09:02)
[2023-06-02] MEDS: ENOXAPARIN 40 MG/0.4 ML SYRINGE SUB-Q (09:03)
[2023-06-02] MEDS: carvediloL 3.125 MG TABLET PO (09:04)
--- NOTE | 2023-06-02 09:47 | PM.DS ---
DS: Admitting Diagnosis Discharge Date 06/02/2023 Admitting Diagnosis Shortness of breath DS: Discharge Diagnosis Discharge Diagnosis (1) New onset of congestive heart failure: Code(s): I50.9 - Heart failure, unspecified Status: Acute Assessment and Plan: New onset acute systolic CHF exacerbation status post cardiac catheterization cardiology was consulted maximum medical management see above Oral diuresis Jardiance beta-nacho JOSE-inhibitor Aldactone Lasix repeat CMP in 2 days Life vest for discharge Follow with cardiology in 1 week (2) Uncontrolled diabetes mellitus: Qualifiers: Diabetes mellitus type: type 2 Glycemic state: with hyperglycemia Qualified Code(s): E11.65 - Type 2 diabetes mellitus with hyperglycemia Status: Acute Assessment and Plan: Insulin sliding scale (3) Uncontrolled hypertension: Code(s): I10 - Essential (primary) hypertension Status: Acute Assessment and Plan: Beta-nacho lisinopril (4) Personal history of noncompliance with medical treatment and regimen: Code(s): Z91.199 - Patient's noncompliance with other medical treatment and regimen due to unspecified reason Status: Acute Assessment and Plan: Counseling DS: Summary Hospital Course Hospital Course: 62-year-old male with a past medical history of hypertension and uncontrolled diabetes who presented to the ER via private vehicle with 1.5 to 2 months of progressive leg swelling and development of dyspnea on exertion.? Patient reports a finished radiation therapy for his prostate cancer in February.? Shortly after that time he began having some peripheral lower extremity swelling.? His initially is swelling would go down at night but as time has progressed swelling has become more persistent it has gradually work his way up his legs and into his abdomen.? It is been accompanied by dyspnea on exertion for the last 6 weeks or so.? The dyspnea on exertion is getting progressively worse.? He had denies any significant orthopnea.? He denies any accompanying chest pain or palpitations.? He does report increasing abdominal distension in his abdomen feels tight.? He has been having normal bowel movements without any hematochezia or melena.? He denies history of cirrhosis.? He has not noticed any scrotal edema.? He denies any episodes of chest pain that may have preceded onset of his swelling.? He has not had any associated cough or congestion.? He is a lifelong nonsmoker and denies any significant alcohol, stimulant use or exposures.? He does have diabetes that was diagnosed last year at which time his A1c was 14.? He has managed to get his A1c down to 8.? He reports occasional tingling in his lower extremities but denies a diagnosis of peripheral neuropathy. Cardiology consultation given for evaluation, further treatment recommendations and work up Started on spironolactone, carvedilol, Jardiance for blood pressure and CHF control as per Cardiology Cardiac catheterization today which showed moderate CAD without any significant stenosis Hemoglobin A1c is 9.7% which shows poorly controlled diabetes mellitus Continue with accu-Cheks with Insulin coverage as per protocol Advised patient regarding better control of his blood sugar levels Given severely reduced EF, he would need LifeVest/AICD placement before discharge Patient is cleared for discharge by Cardiology pending LifeVest arrangement Time Spent with Patient Time attestation: Total time spent providing and/or coordinating discharge services: DS: Data Data Completed and Pending Labs on day of discharge: Labs from last 24 hours 06/02/23 06/02/23 06/01/23 08:15 06:09 21:03 WBC 3.7 L RBC 4.87 Hgb 14.1 Hct 44.2 MCV 90.8 MCH 29.0 MCHC 31.9 L RDW 12.3 Plt Count 207 MPV 11.3 H Immature Gran % (Auto) 0.3 Neut % (Auto) 58.5 Lymph % (Auto) 23.2 [place] % (Auto) 14.4 H Eos % (Auto) 2.5 Bas
== END 2023-06-02 10:30 | disposition home or self-care (01) | DRG 286 ==
LOC: ANHED 20:26 → ANHIMU 22:32 → ANH3MED 06-01 14:50 → ANHIMU 06-04 13:40
PROVIDERS: Family Medicine; Internal Medicine Cardiovascular Disease; Specialist; Admitting Provider Internal Medicine; Emergency Provider Physician Assistant; PCP Nurse Practitioner Family; Visit Provider Internal Medicine
PROC: 4A023N7 Measurement of Cardiac Sampling and Pressure, Left Heart, Percutaneous Approach (ICD-10-PCS; CPT 93452; principal; 2023-05-29 11:30)
PROC: B2111ZZ Fluoroscopy of Multiple Coronary Arteries using Low Osmolar Contrast (ICD-10-PCS; 2023-05-29 11:30)
DX: I11.0 Hypertensive heart disease with heart failure (principal); I50.41 Acute combined systolic (congestive) and diastolic (congestive) heart failure; I42.8 Other cardiomyopathies; E11.65 Type 2 diabetes mellitus with hyperglycemia; Z85.46 Personal history of malignant neoplasm of prostate; Z91.199 Patient's noncompliance with other medical treatment and regimen due to unspecified reason
CPT/HCPCS: 36415; 71046; 71275; 74177; 80048; 80053; 80061; 82948; 83036; 83690; 83735; 83880; 84100; 84484; 85025; 85027; 85380; 85610; 85730; 93005; 93458; 93970; 96374; 96375; 96376; 99285; A9270; C1760; C1887; C1894; C8929; G0269; G0378; J1644; J1650; J1815; J1940; J2250; J3010; J7030; J7040; Q9957; Q9967

== ENCOUNTER 2023-08-19 13:00 | Outpatient (RCR) | payer BC, SELFPAY | END 2023-10-05 10:34 | disposition home or self-care (01) | LOC: ANHDMC 13:00 | PROVIDERS: PCP Emergency Medicine; Visit Provider Emergency Medicine | DX: E08.59 Diabetes mellitus due to underlying condition with other circulatory complications (principal); Z71.89 Other specified counseling | CPT/HCPCS: G0108 ==

== ENCOUNTER 2023-08-19 15:56 | Outpatient (CLI) | payer BC, SELFPAY ==
--- NOTE | 2023-08-19 16:07 | ECHO_ITS ---
Patient Info Name: Bulmaro Doshi Age: 63 years : 1960 Gender: Male Ht: 69 in Wt: 160 lbs BSA: 1.88 m2 HR: 89 bpm Technical Quality: Good Exam Date: 08/19/2023 4:18 PM Exam Location: Echo Lab Patient Status: Outpatient Admit Date: 08/19/2023 Staff Ordering Physician: Ramez Dougherty DO Senior [employer] Developer: Lee Bean RDCS Attending Provider: Ramez Dougherty DO Referring Physician: Farhat CHE; Exam Type: CA echo doppler color flow Study Info Indications I42.8 - Other cardiomyopathies Complete two-dimensional, color flow and Doppler transthoracic echocardiogram is performed. Summary 1. Complete two-dimensional, color flow and Doppler transthoracic echocardiogram is performed. 2. Left ventricular systolic function is severely globally reduced, estimated at 30-35%. 3. Left ventricular chamber dimension is severely enlarged. 4. The left ventricular diastolic function is grade I diastolic dysfunction. 5. E/e' 15 is elevated. 6. Left atrial chamber dimension is mildly enlarged. 7. Right atrial chamber dimension is mildly enlarged. 8. There is mild to moderate mitral valve regurgitation. 9. There is trace tricuspid valve regurgitation. 10. No pulmonary hypertension, estimated pulmonary arterial systolic pressure is 38 mmHg. 11. There is trace pulmonic regurgitation. 12. The aortic root size at the sinus of Valsalva is moderately dilated at 4.7 cm. 13. Dilated inferior vena cava with >50% collapse upon inspiration consistent with elevated right atrial pressure, 10 mmHg. Left Ventricle E/e' 15 is elevated. Left ventricular systolic function is severely globally reduced, estimated at 30-35%. Left ventricular chamber dimension is severely enlarged. The left ventricular diastolic function is grade I diastolic dysfunction. Right Ventricle Right ventricular systolic function is normal and with normal TAPSE 2.3 cm. Right ventricular chamber dimension is normal. Left Atria Left atrial chamber dimension is mildly enlarged. Right Atria Right atrial chamber dimension is mildly enlarged. Aortic Valve The aortic valve is trileaflet. There is no aortic valve stenosis. There is no aortic valve regurgitation. Pulmonic Valve There is trace pulmonic regurgitation. Mitral Valve There is no mitral valve stenosis. There is mild to moderate mitral valve regurgitation. Tricuspid Valve There is trace tricuspid valve regurgitation. No pulmonary hypertension, estimated pulmonary arterial systolic pressure is 38 mmHg. Pericardium/Pleural There is no pericardial effusion. Inferior Vena Cava Dilated inferior vena cava with >50% collapse upon inspiration consistent with elevated right atrial pressure, 10 mmHg. Aorta The aortic root size at the sinus of Valsalva is moderately dilated at 4.7 cm. The prox ascending aorta size is normal. Left Ventricular Outflow Tract Name Value Normal LVOT 2D LVOT Diameter 2.2 cm LVOT Doppler LVOT Peak Gradient 3 mmHg LVOT Mean Gradient 1 mmHg LVOT VTI 17 cm LVOT VTI/AV VTI Ratio 0.9 LVOT Stroke Volume 66 ml LVOT CO
== END 2023-08-19 15:57 | disposition home or self-care (01) ==
PROVIDERS: PCP Emergency Medicine; Visit Provider Internal Medicine Cardiovascular Disease
DX: I42.8 Other cardiomyopathies (principal)
CPT/HCPCS: 93306

== ENCOUNTER 2023-09-11 14:04 | Outpatient (CLI) | payer BC, SELFPAY ==
--- NOTE | ~2023-09-11 | US_ITS ---
EXAMINATION: US art doppler w press LE DATE: 09/11/2023 15:22 INDICATION: Peripheral vascular disease, unspecified. TECHNIQUE: Segmental pressures and plethysmographic and Doppler waveforms of the brachial and lower e xtremity arteries were obtained. COMPARISON: None. FINDINGS: Right and left brachial artery pressures of 144 mm Hg and 138 mm Hg, respectively, are concordant (no rmal difference <= 30 mmHg). The right high-thigh pressure index is 0.68 (normal > 1.2). The right ankle-brachial index (RITA) is 0 .60 (normal >= 0.9-1.0). The right great toe-brachial index (TBI) is 0.87 (normal >= 0.65). The right lower extremity segmental pressure gradients are normal (normal gradients <= 20-30 mmHg between debbie cent levels on the same leg or the same levels on the two legs). Arterial Doppler waveforms are monop hasic in common femoral artery, biphasic in superficial femoral artery and popliteal artery, and mono phasic at the ankle. The left upper-leg pressure index is 1.26. The left RITA is 1.31. The left TBI is 0.61. Arterial Doppl er waveforms are triphasic in common femoral artery, biphasic from superficial femoral artery to popl iteal artery, and at least triphasic in dorsalis pedis. IMPRESSION: 1. Moderately decreased right RITA, consistent with arterial occlusive disease. 2. Mildly decreased left TBI and normal left RITA, consistent with arterial occlusive disease. Note th at RITA may be overestimated arteries are calcified. Reviewed, dictated and finalized at location E. IMPRESSION: 1. Moderately decreased right RITA, consistent with arterial occlusive disease. 2. Mildly decreased left TBI and normal left RITA, consistent with arterial occl usive disease. Note that RITA may be overestimated arteries are calcified.
== END 2023-09-11 14:05 | disposition home or self-care (01) ==
LOC: ANHIMG 14:05
PROVIDERS: PCP Emergency Medicine; Visit Provider Internal Medicine Cardiovascular Disease
DX: I73.9 Peripheral vascular disease, unspecified (principal)
CPT/HCPCS: 93923

== ENCOUNTER 2023-10-27 15:32 | Outpatient (RCR) | payer BC, SELFPAY | END 2023-10-28 13:43 | disposition home or self-care (01) | LOC: ANHDMC 15:32 | PROVIDERS: PCP Emergency Medicine; Visit Provider Emergency Medicine | DX: E11.65 Type 2 diabetes mellitus with hyperglycemia (principal); Z71.89 Other specified counseling | CPT/HCPCS: G0108 ==

== ENCOUNTER 2023-11-06 14:53 | Outpatient (CLI) | payer BC, SELFPAY ==
--- NOTE | 2023-11-06 14:58 | ECHO_ITS ---
Patient Info Name: Bulmaro Doshi Age: 63 years : 1960 Gender: Male Ht: 70 in Wt: 162 lbs BSA: 1.91 m2 HR: 75 bpm BP: 154 / 91 mmHg Heart Rhythm: Sinus Rhythm Technical Quality: Good Exam Date: 11/06/2023 3:17 PM Exam Location: Echo Lab Patient Status: Outpatient Admit Date: 11/06/2023 Staff Ordering Physician: Ramez Dougherty DO Rn Compliance: Margarita Khalil RDCS Attending Provider: Ramez Dougherty DO Referring Physician: Farhat CHE; Exam Type: CA echo doppler color flow Study Info Indications - other cardiomyopathies Complete two-dimensional, color flow and Doppler transthoracic echocardiogram is performed. Summary 1. Complete two-dimensional, color flow and Doppler transthoracic echocardiogram is performed. 2. Left ventricular chamber dimension is moderately enlarged. 3. Left ventricular systolic function is mildly globally reduced, estimated at 45-50%. 4. The left ventricular diastolic function is normal. 5. E/e' 9 is minimally elevated. 6. Left atrial chamber dimension is mildly enlarged. 7. There is mild mitral valve regurgitation. 8. There is mild tricuspid valve regurgitation. 9. Mild pulmonary hypertension, estimated pulmonary arterial systolic pressure is 49 mmHg. Left Ventricle E/e' 9 is minimally elevated. Left ventricular systolic function is mildly globally reduced, estimated at 45-50%. Left ventricular chamber dimension is moderately enlarged. The left ventricular diastolic function is normal. Right Ventricle Right ventricular systolic function is normal and with normal TAPSE 2.4 cm. Right ventricular chamber dimension is normal. Left Atria Left atrial chamber dimension is mildly enlarged. Right Atria Right atrial chamber dimension is normal. Aortic Valve The aortic valve is trileaflet. There is no aortic valve stenosis. There is no aortic valve regurgitation. Pulmonic Valve There is no pulmonic regurgitation. Mitral Valve There is no mitral valve stenosis. There is mild mitral valve regurgitation. Tricuspid Valve There is mild tricuspid valve regurgitation. Mild pulmonary hypertension, estimated pulmonary arterial systolic pressure is 49 mmHg. Pericardium/Pleural There is no pericardial effusion. Inferior Vena Cava Normal inferior vena cava with >50% collapse upon inspiration consistent with normal right atrial pressure, 5 mmHg. Aorta The aortic root size at the sinus of Valsalva is normal. Left Ventricular Outflow Tract Name Value Normal LVOT 2D LVOT Diameter 2.2 cm LVOT Doppler LVOT Peak Gradient 3 mmHg LVOT Mean Gradient 1 mmHg LVOT VTI 17 cm LVOT VTI/AV VTI Ratio 0.9 LVOT Stroke Volume 66 ml LVOT CO 5.2 l/min LVOT CI 2.7 l/min/m2 Pulmonic Valve Name Value Normal PV Doppler PV
== END 2023-11-06 14:54 | disposition home or self-care (01) ==
LOC: ANHCARD 14:53
PROVIDERS: PCP Emergency Medicine; Visit Provider Internal Medicine Cardiovascular Disease
DX: I42.8 Other cardiomyopathies (principal); I08.3 Combined rheumatic disorders of mitral, aortic and tricuspid valves
CPT/HCPCS: 93306

== ENCOUNTER 2024-07-21 14:21 | Outpatient (RCR) | payer BC, SELFPAY | END 2024-08-26 14:57 | disposition home or self-care (01) | LOC: ANHDMC 14:21 | PROVIDERS: PCP Nurse Practitioner Family; Visit Provider Nurse Practitioner Family | DX: E11.65 Type 2 diabetes mellitus with hyperglycemia (principal); Z71.3 Dietary counseling and surveillance | CPT/HCPCS: G0108 ==

== ENCOUNTER 2024-07-22 03:31 | Day surgery (SDC) | payer BC, SELFPAY ==
[2024-07-21 09:38] VITALS: BMI 23.7
--- OUTSIDE RECORDS SUMMARY | 2024-07-22 03:34 | XMS_ITS | Data Portability ---
Author Organization [place] [facility] [employer], Main Office Address [address] [place] [address] Assessment Encounter Date Assessment Date Assessment LastModified by Organization Details LastModified Time 10/30/2022 10/30/2022 advanced local stage prostate cancer. discussed treatment options. Gaby tables predict over a 50 % chance of a positive margin. Suggest primary radiation as since more than likely would need it anyway. Will refer to radiation oncology for their opinion [email or web address] Not available 10/30/2022 09:27:36 Plan of Treatment Reminders Order Date Submit Date Provider Last Modified By Organization Details Last Modified Time Details Appointments None recorded. Lab None recorded. Referral oncologist referral 2022 023 [email or web address] Hernán Puentes, [address] [place] [address], [place], [address], 3 11:39:25 Procedures None recorded. Surgeries None recorded. Imaging US, prostate 2022 023 [email or web address] [facility], [address] [place], [address], 4 12:41:53 Medication Orders ceftriaxon e 1 gram solution for injection 2022 023 ATHENAFAX [id number], [address] [place] [address], [place], [id number], 3 16:30:39 Eligard 45 mg (6 month) subcutaneo us syringe 2022 023 [email or web address] Not available 13:14:29 Patient TargetsNo targets recorded. Patient InstructionsNo instructions recorded. Reason for Referral Referring Physician: Dany barrios, Urology, Encounter Date: 10/30/2022 Results Created Date Observation Date Name Description Value Unit Range Abnormal Flag Note LastModifiedBy Organization Detail LastModifiedTime 10/31/19 23 10/30/2022 MICRO ALBUM N RNDM W/CRE AT RATIO ur creat 76.93 mg/dL REFER ENCE RANGE NOT ESTAB LISHE D FOR RANDO M URINE CREAT ININE Not Available [facility] (Lab) [address] [place], [address], 10/30/2022 13:16:52 10/31/1910/30/2022 MICRO ALBUM N RNDM W/CRE AT RATIO microalbumin , urine 324.2 mg/L 0.0-16 .6 high Not Available [facility] (Lab) [address] [place], [address], 10/30/2022 13:16:52 10/31/19 23 10/30/2022 MICRO ALBUM N RNDM W/CRE AT RATIO microalbumin /creatinine ratio 421 mcg/m g 0-29 high THE AMERI CAN DIABE [facility] ASS[facility] IATIO N DEFIN ES ABNOR MALIT IES IN ALBUM IN EXCRE TION FOLLO WS: CATEG ORY RESUL T (MCG/ MG CREAT ININE ) LUIS DANIEL L <30 MICRO ALBUM INURI A 30-29 9 CLINI PEBBLES ALBUM INURI A > OR = 300 THE ADA RECOM MENDS THAT 2 OF 2 SPECI MENS COLLE CTED WITHI N A 3- TO 6-MON TH PERIO D BE ABNOR MAL BEFOR E CONSI STEPHAN G A PATIE NT TO HAVE CROSS ED ONE OF THESE DIAGN OSTIC THRES HOLDS . REFER ENCE: DIABE [facility] CARE, VOL. 26: S94-S , 2002 Not Available [facility] (Lab) [address] [place], [address], 10/30/2022 13:16:52 10/31/1910/30/2022 COMPR EHENS ERICA METAB OLIC PANEL sodium 138 mmol/ L 137-14 5 Not Available [facility] (Lab) [address] [place], [address], 10/30/2022 13:36:17 10/31/19 23 10/30/2022 COMPR EHENS ERICA METAB OLIC PANEL potassium 4.5 mmol/ L 3.5-5. 1 Not Available [facility] (Lab) [address] [place], [address], 10/30/2022 13:36:17 10/31/19 23 10/30/2022 COMPR EHENS ERICA METAB OLIC PANEL chloride 99 mmol/ L 98-107 Not Available [facility] (Lab) [address] [place], [address], 10/30/2022 13:36:17 10/31/19 23 10/30/2022 COMPR EHENS ERICA METAB OLIC PANEL carbon dioxide 31 mmol/ L 22-30 high Not Available [facility] (Lab) [address] [place], [address], 10/30/2022 13:36:17 10/31/19 23 10/30/2022 COMPR EHENS ERICA METAB OLIC PANEL anion gap 12.5 mmol/ L 14-22 low Not Available [facility] (Lab) [address] [place], [address], 10/30/2022 13:36:17 10/31/19 23 10/30/2022 COMPR EHENS ERICA METAB OLIC PANEL glucose 112 mg/dL 70-99 high Not Available [facility] (Lab) [address] [place], [address], 10/30/2022 13:36:17 10/31/19 23 10/30/2022 COMPR EHENS ERICA METAB OLIC PANEL BUN 14 mg/dL 8-19 Not Available [facility] (Lab) [address] [place], [address], 10/30/2022 13:36:17 10/31/19 23 10/30/2022 COMPR EHENS ERICA METAB OLIC PANEL creatinine 1.02 mg/dL 0.66-1 .25 Not Available [facility] (Lab) [address] [place], [address], 10/30/2022 13:36:17 10/31/19 23 10/30/2022 COMPR EHENS ERICA METAB OLIC PANEL GFR >60 Refer ence Range : [place] ge GFR Healt hy Adult : >60 mL/mi n/1.7 3 m2 Chron ic Kidne y Disea se: 15-60 mL/mi n/1.7 3 m2 Kidne y Failu re: <15/m L/min /1.73 m2 www.n iddk. nih.g ov The MDRD study equat ion has not been valid ated in child ephraim <18 years of age; pregn ant women ; the elder ly >85 years of age; or in some racia l or ethni c subgr oups, such as Hismaryann nics. Outsi de the valid ated terrell eters , estim ated GFR is less accur ate, requi ring clini pebbles judgm ent on a case- by-ca se basis . Clini pebbles inter preta tion for other races and ages must be made by the clini komal. The MDRD study equat ion has not been valid ated for the evalu ation of serum creat inine relat ed to nutri barry l statu s or medic ation usage . For perso ns <18 years of age, a pedia tric GFR calcu lator is avail able on the F websi te: https ://arsh w.aniceto bains.o rg/pr ofess ional s/kdo qi/gf r_cal culat or Not Available [facility] (Lab) [address] [place], [address], 10/30/2022 13:36:17 10/31/19 23 10/30/2022 COMPR EHENS ERICA METAB OLIC PANEL alkaline phosphatase 59 U/L 38-126 Not Available [facility] (Lab) [address] [place], [address], 10/30/2022 13:36:17 10/31/19 23 10/30/2022 COMPR EHENS ERICA METAB OLIC PANEL alanine aminotransfe rase 19 U/L 0-50 Not Available [facility] (Lab) [address] [place], [address], 10/30/2022 13:36:17 10/31/19 23 10/30/2022 COMPR EHENS ERICA METAB OLIC PANEL aspartate aminotransfe rase 27 U/L 15-46 Not Available [facility] (Lab) [address] [place], [address], 10/30/2022 13:36:17 10/31/19 23 10/30/2022 COMPR EHENS ERICA METAB OLIC PANEL bilirubin, total 0.70 mg/dL 0.20-1 .30 Not Available [facility] (Lab) [address] [place], [address], 10/30/2022 13:36:17 10/31/19 23 10/30/2022 COMPR EHENS ERICA METAB OLIC PANEL calcium 9.5 mg/dL 8.4-10 .2 Not Available [facility] (Lab) [address] [place], [address], 10/30/2022 13:36:17 10/31/19 23 10/30/2022 COMPR EHENS ERICA METAB OLIC PANEL total protein 8.2 g/dL 6.3-8. 2 Not Available [facility] (Lab) [address] [place], [address], 10/30/2022 13:36:17 10/31/19 23 10/30/2022 COMPR EHENS ERICA METAB OLIC PANEL albumin 4.4 g/dL 3.0-4. 4 Not Available [facility] (Lab) [address] [place], [address], 10/30/2022 13:36:17 10/31/19 23 10/30/2022 COMPR EHENS ERICA METAB OLIC PANEL globulin 3.8 g/dL 2.6-4. 2 Not Available [facility] (Lab) [address] [place], [address], 10/30/2022 13:36:17 10/31/19 23 10/30/2022 COMPR EHENS ERICA METAB OLIC PANEL A/G ratio 1.2 ratio 1.0-2. 0 Not Available [facility] (Lab) [address] [place], [address], 10/30/2022 13:36:17 10/31/19 23 10/30/2022 LIPID PANEL cholesterol 162 mg/dL 140-19 9 NIH BASILIA NSUS RECOM MENDA TION FOR ASHER STERO L: ADULT CHILD LOW RISK: <200 <170 BORDE RLINE : <200- 239 ----- HIGH RISK: >240 >200 Not Available [facility] (Lab) [address] [place], [address], 10/30/2022 13:36:36 10/31/19 23 10/30/2022 LIPID PANEL triglyceride s 45 mg/dL 0-150 NIH BASILIA NSUS REPOR T RECOM MENDA TION FOR TRIGL YCERI TAYLOR: ADULT CHILD LOW RISK: <150 ----- BODER LINE: 150-1 99 ----- HIGH RISK: >200 ----- Not Available [facility] (Lab) [address] [place], [address], 10/30/2022 13:36:36 10/31/19 23 10/30/2022 LIPID PANEL HDL cholesterol 84 mg/dL 40- Not Available [facility] (Lab) [address] [place], [address], 10/30/2022 13:36:36 10/31/19 23 10/30/2022 LIPID PANEL LDL cholesterol, calculated 69 mg/dL 0-130 NIH BASILIA NSUS REPOR T RECOM MENDA TIONS FOR LDL: ADULT CHILD LOW RISK <130 <110 (OPTI MAL LDL) <100 ----- BORDE RLINE : 130-1 59 ----- HIGH RISK: >160 >130 A TRIGL YCERI DE RESUL T >400 INVAL IDATE S THE CALCU LATIO N FOR LDL FRACT IONAT ION - THE LDL RESUL T WILL NOT BE REPOR ANTONIO. Not Available [facility] (Lab) [address] [place], [address], 10/30/2022 13:36:36 10/31/1910/30/2022 T4 FREE free T4 1.15 NG/dL 0.78-2 .19 Not Available [facility] (Lab) [address] [place], [address], 10/30/2022 14:06:33 10/31/1910/30/2022 T3 FREE free T3 3.4 pg/mL 2.77-5 .27 Not Available [facility] (Lab) [address] [place], [address], 10/30/2022 14:06:44 10/31/1910/30/2022 HEMOG LOBIN A1C HA1C 8.1 % 4.0-6. 0 high Diabe wyatt Scree john Crite jenny: <5.7% Consi stent with absen ce of diabe wyatt 5.7-6 .4% Consi stent with incre ased risk for diabe wyatt (pred iabet es) >OR=6 .5% Consi stent with diabe wyatt REFER ENCE: Diabe wyatt Care 2016, 39(Moss ppl.1 ):s13 -s22 Not Available [facility] (Lab) [address] [place], [address], 10/30/2022 14:09:55 10/31/19 23 10/30/2022 TSH thyroid-stim ulating hormone 0.381 uIU/m L 0.465- 4.680 low Not Available [facility] (Lab) [address] [place], [address], 10/30/2022 14:10:07 10/31/19 23 10/31/2022 THYRO ID PEROX IDASE (TPO) AB thyroid peroxidase (tpo) Ab <9 IU/mL 0-34 Perfo rmed at: [address] [id number] Lab Direc tor: David rapp PhD, Phone : [phone] Not Available [facility] (Lab) [address] [place], [address], 10/31/2022 08:18:49 10/31/1910/31/2022 CA 19-9 Ca 19-9 28 U/mL 0-35 Tiffany Diagn ostic s Elect tiffany milum inesc ence Immun oassa y (ECLI A) . Value s obtai amara with diffe rent assay metho ds or kits canno t be used inter ignacio eably . Resul ts canno t be inter prete d as absol pati evide nce of the prese nce or absen ce of katy garcia se. Perfo rmed at: [address] [id number] Lab Direc tor: David rapp PhD, Phone : [phone] Not Available [facility] (Lab) [address] [place], [address], 10/31/2022 09:15:10 10/31/19 23 10/31/2022 C-PEP TIDE, SERUM C-peptide 1.3 NG/mL 1.1-4. 4 C-Pep tide refer ence inter juan carlos is for fasti ng patie nts. Perfo rmed at: [id number] [place] [address] Lab Direc tor: David rapp PhD, Phone : [phone] Not Available [facility] (Lab) [address] [place], [address], 10/31/2022 11:13:01 10/31/19 23 11/01/2022 THYRO ID STIM IMMUN OGLOB ULIN thyroid stim immunoglobul in <0.10 IU/L 0.00-0 .55 Perfo rmed at: - [address] [address] Lab Direc tor: Geri franco MD, Phone : [phone] Not Available [facility] (Lab) [address] [place], [address], 11/01/2022 17:08:32 10/31/19 23 11/04/2022 CATHY-6 5 AUTOA NTIBO DY cathy-65 autoantibody <5.0 U/mL 0.0-5. 0 Perfo rmed at: - [address] [address] Lab Direc tor: Geri franco MD, Phone : [phone] Not Available [facility] (Lab) [address] [place], [address], 11/04/2022 14:12:55 10/31/19 23 11/07/2022 INSUL IN/IA 2 AUTOA NTIBO DIES ia-2 autoantibodi es <7.5 U/mL Refer ence Range : <7.5 Negat erica > or = 7.5 Posit erica Perfo rmed at: [facility] [employer] [address] [place] [address] Lab Direc tor: Dez prakash MD, Phone : [phone] Not Available [facility] (Lab) [address] [place], [address], 11/07/2022 21:07:44 10/11/19 23 10/10/2022 CT, abdom en + pelvi s, w/wo contr ast No observ ation record ed. [email or web address] [facility] [address] [place], [address], 10/22/2022 10:52:11 10/13/19 23 10/10/2022 NM, bone scan, whole body No observ ation record ed. [address] [facility], [place], [address], 10/22/2022 10:52:12 12/23/19 23 12/21/2022 MRI, pelvi s, w/wo contr ast No observ ation record ed. [email or web address] [address] [address], [place], [address], 12/24/2022 16:49:27 12/31/19 23 12/30/2022 US, renal No observ ation record ed. [email or web address] [address], [place], [address], 12/31/2022 13:39:05 01/02/2012/30/2022 imagi ng/di agnos tic resul t No observ ation record ed. [email or web address] [address] [address], [place], [address], 07/01/2023 15:26:10 05/27/19 24 05/27/2023 XR, chest , 2 view No observ ation record ed. [address] [address], [place], [address], 06/04/2023 11:58:34 05/27/19 24 05/27/2023 US, doppl er, venou s No observ ation record ed. [address] [address], [place], [address], 06/04/2023 11:59:47 Result Notes None recorded. Problems Name Problem SNOMED Code Status Onset Date Resolution Date Notes Provider Name and Address Organization Details Recorded Time Elevated blood-pressure reading without diagnosis of hypertension 929082219 Active 2022 DAMI Islas [address], [address], [place], [address], [employer] [place] [employer] 3 10:45:54 Lipoma of skin 937919096 Active 2022 DAMI Islas [address], [place], [address], [employer] [place] [facility] [employer] 3 10:51:57 Cyst of scalp 933363187 Active 2022 DAMI Islas [address], [place], [address], [employer] 3 10:52:10 Testosterone level below reference range 954619029 Active 2022 DAMI Islas [address], [place], [address], [employer] 3 11:03:21 Prostate specific antigen above reference range 214921064 Active 2022 DAMI Islas [address], [place], [address], [employer] 3 17:31:07 Hyperthyroidis m 38697005 Active 2022 DAMI Islas [address], [place], [address], [employer] 3 17:31:30 Diabetes mellitus without complication 282831793 Active 2022 DAMI Islas [address], [place], [address], [employer] 3 17:34:35 Hemoglobin A1C - diabetic control finding 650912583 Active 2022 DAMI Islas [address], [place], [address], [employer] [place] [facility] [employer] 3 17:35:54 Uncontrolled type 2 diabetes mellitus 447496559 Active 2022 Nguyen De La Cruz MD [address], [place], [address], [employer] 3 09:43:56 Dyslipidemia 948056958 Active 2022 Nguyen De La Cruz MD [address], [place], [address], [employer] 3 09:44:18 Thyroid function tests abnormal 743294959 Active 2022 Nguyen De La Cruz MD [address], [place], [address], [employer] 3 09:46:37 Essential hypertension 12610864 Active 2022 Nguyen De La Cruz MD [address], [place], [address], [employer] 3 09:47:26 Carcinoma of prostate 790829564 Active 2022 Dany uriarte MD [address], [place], [address], [employer] 3 12:46:04 Malignant tumor of prostate 369376245 Active 2022 ALICIA Daniel null, [facility] [employer] 3 16:11:52 Bilateral lower leg edema 958104856 Active 2023 RICHA Tan [address], [place], [address], [employer] 4 12:22:15 Problem Notes None recorded. Procedures Surgical History Date Name Laterality Status Provider Name and Address Organization Details Recorded Time 3 Prostate Ultrasound completed Dany Goodman MD [address], [place], [address], [employer] 11/27/2022 11:37:52 3 2. Prostate Biopsy completed Dany Goodman MD [address], [place], [address], [facility] 09/11/2022 12:03:43 Imaging Results Imaging Date Name Status LastModified by Organiz ation Details LastModified Time 10/10/2022 CT, abdomen + pelvis, w/wo contrast completed [address] [place], [address], 10/22/2022 10:52:11 10/10/2022 NM, bone scan, whole body completed [address] [place], [address], 10/22/2022 10:52:12 12/21/2022 MRI, pelvis, w/wo contrast completed [email or web address] [address], [address], 12/24/2022 16:49:27 12/30/2022 US, renal completed [address], [address], 12/31/2022 13:39:05 12/30/2022 imaging/diagn ostic result completed [email or web address] [address], [address], 07/01/2023 15:26:10 05/27/2023 XR, chest, 2 view [address], [address], 06/04/2023 11:58:34 05/27/2023 US, doppler, venous completed [address], [address], 06/04/2023 11:59:47 Procedure Notes None recorded. Medical Equipment None Reported. Allergies No known drug allergies Medications Name Sig Start Date Stop Date Status Note LastModified by Organization Details LastModified Time OneTouch Ultra Blue Test Strips Use to test blood sugars once daily 2022 active Not Available Not Available Not Avai lable losartan 50 mg tablet TAKE 1 TABLET BY MOUTH EVERY DAY IN THE MORNING active Not Available Not Available No t Available glimepiride 1 mg tablet TAKE 2 TABLETS BY MOUTH TWICE DAILY BEFORE MEALS active Not Available Not Available No t Available ketorolac 0.5 % eye drops INSTILL 1 DROP IN BOTH EYES TWICE DAILY active Not Available Not Available No t Available ceftriaxone 1 gram solution for injection Take 1 g by injection route. active Not Available Not Available No t Available OneTouch Ultra Test strips USE TO TEST EVERY DAY active Not Available Not Available No t Available Xylocaine 20 mg/mL (2 %) injection solution Take 10 mL by injection route. 2022 active Not Available Not Available Not Avai lable gentamicin 40 mg/mL injection solution INJECT 80 MG DIRECTED active Not Available Not Available No t Available metformin ER 500 mg tablet,exte nded release 24 hr TAKE 2 TABLETS BY MOUTH EVERY DAY 2023 active Not Available Not Available Not Avai lable doxycycline hyclate 100 mg tablet TAKE 1 TABLET BY MOUTH TWICE DAILY FOR 10 DAYS 07/31 completed Not Available Not Available Not Available metformin ER 1,000 mg tablet,exte nded release 24hr (osmotic) Take 1 tablet every day by oral route. 2022 active Not Available Not Available Not Avai lable Eligard 45 mg (6 month) subcutaneou s syringe Inject 45 mg by subcutane ous route. 2022 active Not Available Not Available Not Avai lable metformin ER 500 mg 24 hr tablet,exte nded release (gastric retention) Take 2 tabs po daily 08/15 completed Not Available Not Available Not Available metformin ER 1,000 mg 24 hr tablet,exte nded release (gastric reten.) TAKE 1 TABLET BY MOUTH EVERY DAY active Not Available Not Available No t Available Easy Touch Alcohol Prep Pads USE TO TEST EVERY DAY active Not Available Not Available No t Available Farxiga 5 mg tablet Take 1 tablet(s) every day by oral route in the morning for 90 days. active Not Available Not Available No t Available OneTouch Ultra2 Meter USE TO TEST EVERY DAY active Not Available Not Available No t Available OneTouch Delica Plus Lancet 33 gauge USE TO TEST EVERY DAY active Not Available Not Available No t Available FreeStyle Michelle 2 Sensor kit USE DIRECTED active Not Available Not Available No t Available Vitals Date Recorded Body height Oxygen saturation Oxygen saturation in Arterial blood by Pulse oximetry Heart rate Body mass index (BMI) Body weight Provider Name and Address Organization Details Last Updated DateTime 3 177.8 cm 96 % 96 % 91 /min 22.4 kg/m2 53770.4 1 g ALICIA Daniel [facility] [employer] [facility] 3 09:18:52 Date Recorded Body height Provider Name an d Address Organization Details Last Updated DateTime 11/27/2022 177.8 cm Valerie Bello MA [facility] [employer] [facility] 11/27/2022 10:30:11 Date Recorded Body height Body mass index (BMI) Body weight Body temperature Heart rate Oxygen saturation Oxygen saturation in Arterial blood by Pulse oximetry Systolic blood pressure Diastolic blood pressure Provider Name and Address Organization Details Last Updated DateTime 3 177.8 cm 23.1 kg/m2 64518.3 7 g 97 [degF] 84 /min 97 % 97 % 142 mm[Hg] 90 mm[Hg] Adriana Bhatt RN [facility] [employer] [facility] 3 08:59:51 Date Recorded Body height Body mass index (BMI) Body weight Body temperature Heart rate Oxygen saturation Oxygen saturation in Arterial blood by Pulse oximetry Systolic blood pressure Diastolic blood pressure Provider Name and Address Organization Details Last Updated DateTime 3 177.8 cm 23 kg/m2 32519.7 8 g 97.1 [degF] 82 /min 92 % 92 % 142 mm[Hg] 84 mm[Hg] Alice Espinosa CNA [facility] [employer] [facility] 3 09:05:32 Date Recorded Oxygen saturation Oxygen saturation in Arterial blood by Pulse oximetry Heart rate Provider Name and Address Organization Details Last Updated DateTime 01/21/2023 97 % 97 % 92 /min DAMI Islas [address] [facility] [address], [place], [address], [facility] [employer] [facility] 01/21/2023 13:40:50 Date Recorded Body height Body mass index (BMI) Body weight Body temperature Heart rate Oxygen saturation Oxygen saturation in Arterial blood by Pulse oximetry Systolic blood pressure Diastolic blood pressure Provider Name and Address Organization Details Last Updated DateTime 4 177.8 cm 24.8 kg/m2 84597.4 8 g 96.8 [degF] 96 /min 98 % 98 % 140 mm[Hg] 90 mm[Hg] Libia Alexander RN [facility] [employer] 4 10:06:11 Social History Question Answer Notes LastModified by Organizat ion Details LastModified Time Tobacco Smoking Status Never Smoker Migdalia Tyson navarrete [facility] [employer] 01/21/2023 08:56:17 What Is Your Level Of Alcohol Consumption? None Information not available 07/01/2022 What Is Your Level Of Caffeine Consumption? Occasional Information not available 07/01/2022 In The 14 Days Before Symptom Onset, Have You Had Close Contact With A Laboratory-confirm ed COVID-19 While That Case Was Ill? No [email or web address] Information n ot available 01/21/2023 In The 14 Days Before Symptom Onset, Have You Had Close Contact With A Person Who Is Under Investigation For COVID-19 While That Person Was Ill? No Information not available 01/21/2023 What Type Of Diet Are You Following? REGULAR Information n ot available 07/01/2022 Do You Use Any Illicit Or Recreational Drugs? No [email or web address] Information not available 01/21/2023 Have You Recently Traveled Abroad? No [email or web address] Information not available 01/21/2023 Do You Have Any Dietary Restrictions? No Information not available 01/21/2023 Do You Or Have You Ever Used Any Other Forms Of Tobacco Or Nicotine? No [email or web address] Information not available 01/21/2023 Sex: Unknown Functional Status Question Answer Note LastModified by Organization D etails LastModified Time What is your exercise level? None Information not available 07/01/2022 Mental Status None recorded. Family History Nothing Reported Notes:father-cancer Medical History Condition Response SURGERY Y DIABETES, TYPE Y Past Encounters Encounter ID Performer Location Encounter Start Date Encounter Closed Date Diagnosis/Indication Diagnosis SNOMED-CT Code Diagnosis ICD10 Code Diagnosis Note [id number] DAMI Islas [facility] [address] [facility] [address] [address] [address] [place] [address] 07/01/2022 10:22:59 07/01/2022 12:54:11 Elevated blood-pressure reading without diagnosis of hypertension 100176335 R03.0 New finding on examBP in office today is 154/80Asym ptomatic at this time.Encou raged pt to increase water intake, reduce caffeine intake, exercise regularly, decrease/e liminate sodium intake, work on weight loss and stress reductionW ill continue to monitor closely and consider medication if appropriat e. Lipoma of skin 103212171 D17.30 ChronicAdv ised this is benign finding, no tx indicated at this time. Cyst of scalp 311821245 L72.9 Chronic3-4 cm palpable, irregularl y shaped cyst on occiput.Wi ll refer to derm for further evaluation /tx. Screening for disorder 992426473 Z13.9 Z13.1 Z13.29 Z13.0 Z13.220 Testostero ne level below reference range 103494637 R89.1 [id number] DAMI Islas [facility] [facility] [facility] [place] [facility] [address] [place] [address] 07/03/2022 17:07:19 07/03/2022 18:01:57 Prostate specific antigen above reference range [id number] R97.20 New finding on labs 10.00Pt is asymptomat ic at this timeWill refer to urology for further evaluation tx. Hyperthyroidism [id number] E05.90 New finding on labsTSH 0.461In light of pts new onset DM and elevated PSA, recommend pt be seen by endocrinol ogy.Concer amara that blood sugar, thyroid dysfunctio n, and elevated psa may indicate an underlying autoimmune cause. Hemoglobin A1C - diabetic control finding [id number] R73.09 New finding on labsUnable to assess if pt is DMI or DMII at this time.Will start on metformin pending endocrinol ogy appt and monitor closely until pt is seen.New orders for testing supplies sent to pharm. Pt advised to test and document fasting blood sugars daily. [id number] Dany Goodman MD [facility] [address] [place] [address] 07/31/2022 08:51:02 07/31/2022 09:42:55 Prostate specific antigen above reference range [id number] R97.20 Patient with elevated PSA and abnormal prostate exam worrrisome for prostate caner. Suggest trans rectal US and biopsy of the prostate. He is agreeable. Discussed procedure risks and alternativ es. [id number] Dany Goodman MD [facility] [place] [address] [place] [address] 08/14/2022 09:15:56 08/28/2022 09:06:31 Prostate specific antigen above reference range [id number] R97.20 Patient with elevated PSA and abnormal prostate exam worrrisome for prostate caner. Suggest trans rectal US and biopsy of the prostate. He is agreeable. Discussed procedure risks and alternativ es. [id number] Nguyen De La Cruz MD [facility] [place] [address] [place] [address] 08/15/2022 09:10:39 08/15/2022 09:54:14 Uncontrolled type 2 diabetes mellitus [id number] E11.65 a1c 14% new onset- no recent weight loss and no family hx of DM- covid induced questionab le- has high PSA undergoing biopsy in August to assess etiology. Send for cpeptide /CATHY/abs to screen for ALEX and send for ca 19-9 to assess for pancreatic concerns. continue metformin for insulin sensitizat ion- sugars are reduced by 150 mg/dL on average with monotherap y but not at goal. Will add farxiga 5 mg daily - patient advised to drink adequate water up to 64 ozs per day due to loss of calories and sugar through renal excretion- he was advised to contact clinic with any concern of dizziness, lightheade dness, flank pain or urinary pain or discomfort that might suggest the need for a urinalysis . He voiced understand ing. Encouraged patient to test sugars prebreakfa st and predinner and at times before bedtime to maintain log for review at return visit. Recommend he take his glimepirid e on glucose scale according to glucose checks. If sugars are running under 100 mg/dL hold glimepirid e, if 101-140 mg/dL take half tablet, if 141-180 mg/dL take full tablet and if over 180 mg/dL take 2 tablets for the full 2 mg of glimepirid e up to twice daily before meals. If sugars are consistent ly over 180 mg/dL he was advised to contact clinic and notify me so we can modify changes. Patient advised to bring glucose meter at return visit for review. Dyslipidemia [id number] E 78.5 send for lipids and thyroid panel. Thyroid fu nction tests abnormal [id number] R94.6 TSH suppressed but patient likely having acute reactive changes based on PSA/A1C changes- will repeat full thyroid panel along with antibodies to screen for autoimmune thyroiditi s. patient does not exhibit hyperthyro id symptoms other than mild hypertensi on. Essential hypertension [id number] I10 Trial on losartan 50 mg daily. Spent up to 45 minutes preparing to see the patient (eg, review of tests), obtaining and/or reviewing separately obtained history, performing a medically appropriat e examinatio n and evaluation , counseling and educating the patient, ordering medication s, tests, along with documentin g clinical informatio n in the electronic health record, independen trinay interpreti ng results and communicat ing results to the patient. RTC in 2 months. Patient was provided a handwritte n lab order which contains our fax number. If he chooses to go outside of the [facility] system to obtain labwork he was advised to provide our fax number and my informatio n to the lab he will be obtaining labwork from in order to have his labs properly forwarded over for me to review so there is no loss of follow up due to use of outside network. He was also advised to contact our clinic informing us that he has completed his labwork so we are aware we will need to reach out to the appropriat e laboratory to request his results be forwarded to us so I might have the ability to review and make further medical decision making in his case. He voiced understand ing. Thank you for this consultati on. [id number] DAMI Islas [facility] [address] [place] [address] 08/28/2022 08:53:38 08/28/2022 09:48:34 Hemoglobin A1C - diabetic control finding [id number] R73.09 Improving, per pt report of sugars down to 150-180s, but not yet controlled .Recommend CGM since pt is new onset DM and working on improving BS control. Pt is good candidate for CGM, especially in light of other metabolic concerns with PSA and thyroid function. Freestyle Michelle 2 samples given. Reviewed endocrinol ogy note from Dr. De La Cruz (08/15/22): a1c 14% new onset- no recent weight loss and no family hx of DM- covid induced questionab le- has high PSA undergoing biopsy in August to assess etiology. Send for cpeptide /CATHY/abs to screen for ALEX and send for ca 19-9 to assess for pancreatic concerns.c ontinue metformin for insulin sensitizat ion- sugars are reduced by 150 mg/dL on average with monotherap y but not at goal.Will add farxiga 5 mg daily - patient advised to drink adequate water up to 64 ozs per day due to loss of calories and sugar through renal excretion- he was advised to contact clinic with any concern of dizziness, lightheade dness, flank pain or urinary pain or discomfort that might suggest the need for a urinalysis . He voiced understand ing.Encour aged patient to test sugars prebreakfa st and predinner and at times before bedtime to maintain log for review at return visit. Recommend he take his glimepirid e on glucose scale according to glucose checks. If sugars are running under 100 mg/dL hold glimepirid e, if 101-140 mg/dL take half tablet, if 141-180 mg/dL take full tablet and if over 180 mg/dL take 2 tablets for the full 2 mg of glimepirid e up to twice daily before meals. If sugars are consistent ly over 180 mg/dL he was advised to contact clinic and notify me so we can modify changes. Patient advised to bring glucose meter at return visit for review. Hyperthyroidism [id number] E05.90 Finding on labsTSH 0.461 (07/01/22)In light of pts new onset DM and elevated PSA, recommende d pt be seen by endocrinol ogy.Concer amara that blood sugar, thyroid dysfunctio n, and elevated psa may indicate an underlying autoimmune cause. Reviewed endocrinol ogy note from Dr. De La Cruz (08/15/22): TSH suppressed but patient likely having acute reactive changes based on PSA/A1C changes- will repeat full thyroid panel along with antibodies to screen for autoimmune thyroiditi s. Prostate s pecific antigen above reference range [id number] R97.20 Finding on labs 10.00 (07/01/22)Pt is asymptomat ic at this timeReferr ed to urology for further evaluation tx. Reviewed urology note from Dr. Goodman (07/31/22): Patient with elevated PSA and abnormal prostate exam worrrisome for prostate caner. Suggest trans rectal US and biopsy of the prostate. He is agreeable. Discussed procedure risks and alternativ es. Reviewed urology note from Dr. Goodman (08/14/22): Patient with elevated PSA and abnormal prostate exam worrrisome for prostate caner. Suggest trans rectal US and biopsy of the prostate. He is agreeable. Discussed procedure risks and alternativ es. Testostero ne level below reference range [id number] R89.1 New finding on labstotal 250.1, free 4.83 (07/01/22)No interventi on at this time as pt is being managed by endocrinol ogy for DM and thyroid dysfunctio n and seeing urology for elevated PSA. Will consider testostero ne replacemen t in the future if appropriat e. [id number] MD HUSAM Spivey [facility] [address] [address] 09/11/2022 11:19:32 09/11/2022 12:07:16 [id number] MD HUSAM Spivey [facility] [address] [address] 09/25/2022 11:55:25 09/25/2022 12:38:22 Carcinoma of prostate [id number] C61 Prostate cancer intermedia te risk will need staging PMSA PET scanschedu le cancer consult after scan. [id number] MD HUSAM Spivey [facility] [address] [place] [address] 10/30/2022 09:08:20 10/30/2022 09:26:18 Malignant tumor of prostate [id number] C61 [id number] MD HUSAM Spivey [facility] [address] [facility] [address] [place] [address] 11/27/2022 10:18:15 11/27/2022 10:53:06 Malignant tumor of prostate [id number] C61 The patient had the gold markers placed today and was given a 6 month Eligard injection. To follow up with radiation oncology. [id number] DAMI Islas [facility] Warren mendez [address] [place] [address] 12/25/2022 08:54:32 12/25/2022 09:50:12 Hemoglobin A1C - diabetic control finding [id number] R73.09 Improving, per pt report of sugars down to 120-160s, and A1C down to 8.1 (10/30/22) but not yet fully controlled . Suspect pts blood glucose may decrease following tx for prostate cancer. Pt encouraged to monitor blood sugars very closely during radiation therapy as medication s may need to be lowered. Reviewed endocrinol ogy note from Dr. De La Cruz (08/15/22): a1c 14% new onset- no recent weight loss and no family hx of DM- covid induced questionab le- has high PSA undergoing biopsy in August to assess etiology. Send for cpeptide /CATHY/abs to screen for ALEX and send for ca 19-9 to assess for pancreatic concerns.c ontinue metformin for insulin sensitizat ion- sugars are reduced by 150 mg/dL on average with monotherap y but not at goal.Will add farxiga 5 mg daily - patient advised to drink adequate water up to 64 ozs per day due to loss of calories and sugar through renal excretion- he was advised to contact clinic with any concern of dizziness, lightheade dness, flank pain or urinary pain or discomfort that might suggest the need for a urinalysis . He voiced understand ing.Encour aged patient to test sugars prebreakfa st and predinner and at times before bedtime to maintain log for review at return visit. Recommend he take his glimepirid e on glucose scale according to glucose checks. If sugars are running under 100 mg/dL hold glimepirid e, if 101-140 mg/dL take half tablet, if 141-180 mg/dL take full tablet and if over 180 mg/dL take 2 tablets for the full 2 mg of glimepirid e up to twice daily before meals. If sugars are consistent ly over 180 mg/dL he was advised to contact clinic and notify me so we can modify changes. Patient advised to bring glucose meter at return visit for review. Hyperthyroidism [id number] E05.90 Finding on labsTSH 0.461 (07/01/22)Pe r patient no med changes indicated by most recent labs. Suspect tsh may correct following tx for prostate cancer. Reviewed endocrinol ogy note from Dr. De La Cruz (08/15/22): TSH suppressed but patient likely having acute reactive changes based on PSA/A1C changes- will repeat full thyroid panel along with antibodies to screen for autoimmune thyroiditi s. Testostero ne level below reference range [id number] R89.1 total 250.1, free 4.83 (07/01/22)No interventi on at this time as pt is being managed by endocrinol ogy for DM and thyroid dysfunctio n and seeing oncology for prostate cancer. Will consider testostero ne replacemen t in the future if appropriat e. Malignant tumor of prostate [id number] C61 New problemPt reports plan is for radiation therapy and hormone injections . Pt states he is supposed to have first radiation tx around 01/14/23. Has u/s and CT scan scheduled for 12/30 & 12/31. Reviewed oncology note from Dr. Puentes (11/06/22): biopsies positive for adenocarci noma. Discussion of appropriat e tx options including prostatect avi, chemo, radiation, as well as long-term management of hormone therapies. Reviewed urology note from Dr. Goodman (11/27/22): The patient had the gold markers placed today and was given a 6 month Eligard injection. To follow up with radiation oncology.O rder gold markerRene w cefTRIAXon e 1 gram solution for injectionO rder US, prostateSt art Eligard 45 mg (6 month) subcutaneo us syringe 45 mg [id number] DAMI Islas [facility] [address] [place] [address] 01/21/2023 08:55:56 01/21/2023 09:31:57 Malignant tumor of prostate [id number] C61 Establishe d with oncologyPl an is for radiation therapy only; no surgical resection at this point. No side effects of radiation therapy at this time.Recom mend continuing to check BG frequently and watch for hypoglycem ia signs like hunger, irritabili ty, and lightheade dness. Suspect once tumor shrinks, his average BG will decrease and will be able to downgrade antiglycem ic agents.Fol low-up in 3 months. Diabetes m ellitus without complication [id number] E11.9 Recommend continuing to check BG frequently and watch for hypoglycem ia signs like hunger, irritabili ty, and lightheade dness. Suspect once tumor shrinks, his average BG will decrease and will be able to downgrade antiglycem ic agents. [id number] DAMI Tan-Sunil [facility] [address] [place] [address] 04/23/2023 12:11:36 05/20/2023 12:16:41 Bilateral lower leg edema [id number] R60.0 Carcinoma of prostate 25 1187368 C61 Health Concerns Section Related Observation LastModified by Organization Detai ls LastModified Time None Recorded Concern Status LastModified by Organization Details LastModified Time None Recorded Advance Directives Directive None Recorded Payers Encounter Date Sequence Insurance Name Policy Number Policy Mock Covered Member ID Mock Member ID Guarantor Name 10/30/2022 1 [place] [id number] Bulmaro Doshi [id number] Bulmaro G [place] 11/27/2022 1 [place] [id number] Bulmaro Doshi [id number] Bulmaro Alfaro [place] 12/25/2022 1 [place] [id number] Bulmaro Doshi [id number] Bulmaro Angelina [place] 01/21/2023 1 [place] [id number] 4 Bulmaro Tico [id number] Bulmaro Alfaro [place] 04/22/2023 1 [place] [id number] 4 Bulmaro Doshi [id number] Bulmaro Angelina T[place] Notes Date Note Type Note Provider Name and Address Organization Details Recorded Time 10/30/2022 text/html follow up for prostate cancer. bone scan and abd. CT no mets. Dany Goodman MD [address] [facility], [place], [address], [place] [facility] [employer] 10/30/2022 10:31:38 12/25/2022 text/html 12/25/22: 1. Pt i n office for 3 month f/u appt. Pt seeing urology (Dr. Goodman) and oncology (Dr. Puentes) for newly dx prostate cancer. Pt states that the plan is for radiation therapy and hormone injections. Pt states he is supposed to have first radiation tx around 01/14/23. Has u/s and CT scan scheduled for 12/30 & 12/31.2. Pt reports blood sugars normally run btw 120s-160s in the mornings. States he got his A1C down to 8.0 from 14.0.3. Pt states he saw dermatology and she gave him abx for the lump on the back of his head. States then she gave him two rounds of steroid injections and the lump went down, but isn't completely gone. 08/28/22: Elevated PSA: Has ultrasound scheduled for 12/[address] on 12/31. Plan for radiation therapy.DM: Last A1c 8.1% on 10/30/22. C peptide 1.3. AC BG 120-140 after meals BG 250. Taking Farxiga 5 mg daily, glimiperide 2 mg BID, Metformin 1000 mg ER daily.Hyperthyroid ism: TSH 0.381L on 10/30/22. 07/03/22: 1. Pt in office for f/u on lab results. 07/01/22: 1. Pt in office with daughter to establish care. Has a pimple/spot that sometimes drains clear fluid, bloody fluid, and occasionally pus.2. Pt c/o having injured right great toe, since 20s. States he was told before the only tx is fusion of bones and he is not interested at this time.3. Pt states he has a knot on his left side that isn't painful. Pt states it's been there for years. Pt states he doesn't feel like it's getting any bigger or changing. DAMI Islas [address], [place], [address], [employer] [facility] 12/26/2022 14:41:24 01/21/2023 text/html Malignant tumor of prostate: started radiation therapy 2 days ago. Plan is to just do radiation and no surgical resection at this time. No nausea or vomiting, dry mouth, or change to urinary symptoms. Still having dribbling and difficulty starting stream.BG has not changed so far. Currently on glimiperide 1 mg BID, Metformin ER 1000 mg daily, and farxiga 5 mg daily. DAMI Islas [address], [place], [address], [employer] 01/21/2023 13:57:52
[2024-07-22 06:33] VITALS: BP 177/90; PULSE 82; RESP 18; TEMP 36.2; O2SAT 100; BMI 23.8
[2024-07-22] MEDS: LACTATED RINGERS 1,000 ML 150 ML IV CONT (06:34)
--- NOTE | 2024-07-22 06:57 | P.PNAN_ITS ---
Anes - Initial Pre Proc Eval Procedure: Operation Date: 07/22/24 07:30 Proposed Procedures p Colonoscopy - London Oro MD Date/Time: 07/22/24 06:57 Surgeon: London Oro MD Pre Op Diagnosis: Melena Patient Data Age: 64 Gender: M Height: 1.78 m Weight: 75.4 kg Last Vital Signs Temp 36.2 C L 07/22/24 06:33 Pulse 82 07/22/24 06:33 Resp 18 07/22/24 06:33 BP 177/90 H 07/22/24 06:33 Pulse Ox 100 07/22/24 06:33 O2 Del Method Room Air 07/22/24 06:33 Allergies Allergy/AdvReac Type Severity Reaction Status Date / Time No Known Allergies Allergy Verified 07/22/24 06:28 Home Medications ?Medication ?Instructions ?Recorded ?Confirmed ?Type blood sugar diagnostic (Accu-Chek #100 ea 07/24/23 07/08/24 Rx Guide test strips) blood-glucose meter (Accu-Chek #1 ea 07/24/23 07/08/24 Rx Guide Glucose Meter) lancets 30 gauge #100 ea 07/24/23 07/08/24 Rx pen needle, diabetic 32 gauge x #100 ea 07/24/23 07/08/24 Rx 5/32 (BD Ultra-Fine Esperanza Pen Needle) blood-glucose sensor (FreeStyle #6 ea 12/17/23 07/08/24 Rx Michelle 3 Plus Sensor device) insulin glargine 100 unit/mL (3 15 unit (0.15 mL) subcut QPM #15 mL 02/29/24 07/22/24 Rx mL) subcutaneous pen empagliflozin 10 mg tablet See Rx Instructions .Route 04/20/24 07/22/24 Rx (Jardiance) .COMPLEX #90 tabs lisinopril 20 mg tablet See Rx Instructions .Route 06/01/24 07/22/24 Rx .COMPLEX #30 tabs spironolactone 25 mg tablet See Rx Instructions .Route 06/01/24 07/22/24 Rx .COMPLEX #30 tabs carvedilol 3.125 mg tablet 3.125 mg PO DAILY 07/06/24 07/22/24 History metformin 500 mg tablet,extended 500 mg PO BID #180 tabs 07/14/24 07/22/24 Rx release 24 hr Patient hx anesthesia problems: none Family hx anesthesia problems: none Results Review: All pre-operative results and documents have been reviewed as part of the pre- operative evaluation. 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 He has 2 children ages 25 and 23. He denies any significant history of alcohol drug or tobacco use. Code status: Full code Surrogate decision maker: Smoking status: Never smoker Alcohol intake: never Substance use: never Do You Feel Safe in your Home?: Yes Lack of Transportation: No Lack of Food: Never True Current Housing: I Have Housing Concerned About Future Housing: No Difficulty Paying Gas/Electric Bills: No Difficulty Paying for Meds: No Currently Unemployed: No Education: High School Diploma/GED Difficulty w/ Childcare or Family Care: No Living arrangements: with family Gender identity (if verbalized by the patient): Male Sexual Orientation (if Verbalized by the Patient): Straight or Heterosexual Spiritual care concerns: No Anes - Eval Final PreProcedure Day of Procedure 07/22/24 06:57 Patient weight: normal Heart: regular rate and rhythm Lungs: clear to auscultation and normal air movement Airway: Mallampati scale class II Neurological: alert and oriented Last oral intake: >/= 8 hours ASA classification: IV Emergent: no Anesthetic plan: proceed Anesthesia type and monitoring: general GIVS and standard monitoring Results Review: All pre-operative results and documents have been reviewed as part of the pre- operative evaluation. Informed Consent: The patient's anesthetic plan and its attendant risks and benefits were discussed with the patient/family/POA. Questions were solicited and answers provided to the satisfaction of the patient/family/POA.
--- NOTE | 2024-07-22 07:30 | PM.HPGS ---
History of Present Illness History of Present Illness Consent: Risks, benefits, and alternatives have been discussed and questions answered. Patient agrees to proceed with procedure. 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 He has 2 children ages 25 and 23. He denies any significant history of alcohol drug or tobacco use. Code status: Full code Surrogate decision maker: Smoking status: Never smoker Alcohol intake: never Substance use: never Do You Feel Safe in your Home?: Yes Lack of Transportation: No Lack of Food: Never True Current Housing: I Have Housing Concerned About Future Housing: No Difficulty Paying Gas/Electric Bills: No Difficulty Paying for Meds: No Currently Unemployed: No Education: High School Diploma/GED Difficulty w/ Childcare or Family Care: No Living arrangements: with family Gender identity (if verbalized by the patient): Male Sexual Orientation (if Verbalized by the Patient): Straight or Heterosexual Spiritual care concerns: No Meds Home Medications and Allergies Home Medications ?Medication ?Instructions ?Recorded ?Confirmed ?Type blood sugar diagnostic (Accu-Chek #100 ea 07/24/23 07/08/24 Rx Guide test strips) blood-glucose meter (Accu-Chek #1 ea 07/24/23 07/08/24 Rx Guide Glucose Meter) lancets 30 gauge #100 ea 07/24/23 07/08/24 Rx pen needle, diabetic 32 gauge x #100 ea 07/24/23 07/08/24 Rx 5/32 (BD Ultra-Fine Esperanza Pen Needle) blood-glucose sensor (FreeStyle #6 ea 12/17/23 07/08/24 Rx Michelle 3 Plus Sensor device) insulin glargine 100 unit/mL (3 15 unit (0.15 mL) subcut QPM #15 mL 02/29/24 07/22/24 Rx mL) subcutaneous pen empagliflozin 10 mg tablet See Rx Instructions .Route 04/20/24 07/22/24 Rx (Jardiance) .COMPLEX #90 tabs lisinopril 20 mg tablet See Rx Instructions .Route 06/01/24 07/22/24 Rx .COMPLEX #30 tabs spironolactone 25 mg tablet See Rx Instructions .Route 06/01/24 07/22/24 Rx .COMPLEX #30 tabs carvedilol 3.125 mg tablet 3.125 mg PO DAILY 07/06/24 07/22/24 History metformin 500 mg tablet,extended 500 mg PO BID #180 tabs 07/14/24 07/22/24 Rx release 24 hr Allergies Allergy/AdvReac Type Severity Reaction Status Date / Time No Known Allergies Allergy Verified 07/22/24 06:28 Vital Signs Vital Signs - 24 hr 07/22/24 06:33 Temperature 97.2 F L Pulse Rate 82 Respiratory Rate 18 Blood Pressure 177/90 H Pulse Oximetry 100 Oxygen Delivery Room Air Exam Const: General: comfortable and no acute distress HENMT: Face/Nose/Sinus: Normal nares present Eyes: General: appearance normal, both eyes and all related structures Neck: Neck: no JVD Resp: Auscultation: clear to auscultation bilaterally Cardio: Rate: regular rate Rhythm: regular rhythm GI: Inspection: non-distended GI Palp: Yes Soft to palpation Skin: General skin exam: normal color Neuro: General: gait normal Speech: normal speech Extrem: General: normal to inspection Psych: Mental Status: mental status grossly normal Assessment and Plan Assessment and plan (1) Blood in stool: Code(s): K92.1 - Melena Status: Acute Assessment and Plan: colonoscopy
[2024-07-22 07:50] VITALS: BP 95/39; PULSE 72; RESP 19; O2SAT 100
[2024-07-22 08:00] VITALS: BP 125/46; PULSE 79; RESP 15; O2SAT 100
[2024-07-22 08:10] VITALS: BP 139/53; PULSE 78; RESP 21; O2SAT 100
== END 2024-07-22 08:25 | disposition home or self-care (01) ==
PROVIDERS: PCP Nurse Practitioner Family; Referring Provider Nurse Practitioner Family; Visit Provider Internal Medicine Gastroenterology
PROC: 0DJD8ZZ Inspection of Lower Intestinal Tract, Via Natural or Artificial Opening Endoscopic (ICD-10-PCS; CPT 45378; principal; 2024-07-22 07:30)
DX: K64.8 Other hemorrhoids (principal); K55.20 Angiodysplasia of colon without hemorrhage; I11.0 Hypertensive heart disease with heart failure; I50.22 Chronic systolic (congestive) heart failure; I73.9 Peripheral vascular disease, unspecified; E08.59 Diabetes mellitus due to underlying condition with other circulatory complications; Z79.4 Long term (current) use of insulin; Z79.84 Long term (current) use of oral hypoglycemic drugs; Z98.890 Other specified postprocedural states; Z90.49 Acquired absence of other specified parts of digestive tract; Z85.46 Personal history of malignant neoplasm of prostate; Z92.3 Personal history of irradiation
CPT/HCPCS: 45382; J2704; J7120

== ENCOUNTER 2025-01-04 09:35 | Outpatient (CLI) | payer BC, SELFPAY ==
--- NOTE | 2025-01-04 09:40 | ECHO_ITS ---
Patient Info Name: Bulmaro Doshi Age: 64 years : 1960 Gender: Male Ht: 70 in Wt: 165 lbs BSA: 1.93 m2 HR: 67 bpm BP: 159 / 93 mmHg Technical Quality: Good Exam Date: 01/04/2025 10:07 AM Patient Status: O Admit Date: 01/04/2025 Exam Type: CA echo doppler color flow Complete two-dimensional, color flow and Doppler transthoracic echocardiogram is performed. Physical Laboratory Assistant: Christiana Roy Attending Provider: Raul Lux Summary 1. Complete two-dimensional, color flow and Doppler transthoracic echocardiogram is performed. 2. Left ventricular chamber dimension is moderately enlarged. 3. Left ventricular systolic function is moderately globally reduced, estimated at 40-45. 4. There is mild concentric increased left ventricular wall thickness. 5. The left ventricular diastolic function is grade I diastolic dysfunction. 6. E/e' 13 is mildly elevated. 7. Left atrial chamber dimension is mildly enlarged. 8. There is mild mitral valve regurgitation. 9. There is trace tricuspid valve regurgitation. 10. There is trace pulmonic regurgitation. 11. Normal inferior vena cava with >50% collapse upon inspiration consistent with elevated right atrial pressure, 10 mmHg. Left Ventricle E/e' 13 is mildly elevated. Left ventricular chamber dimension is moderately enlarged. Left ventricular systolic function is moderately globally reduced, estimated at 40-45. There is mild concentric increased left ventricular wall thickness. The left ventricular diastolic function is grade I diastolic dysfunction. Right Ventricle Right ventricular chamber dimension is normal. Right ventricular systolic function is normal and with normal TAPSE 2.0 cm. Left Atria Left atrial chamber dimension is mildly enlarged. Right Atria Right atrial chamber dimension is normal. Aortic Valve The aortic valve is trileaflet. There is no aortic valve stenosis. There is no aortic valve regurgitation. Pulmonic Valve There is trace pulmonic regurgitation. Mitral Valve There is no mitral valve stenosis. There is mild mitral valve regurgitation. Tricuspid Valve There is trace tricuspid valve regurgitation. RVSP is not measured due to an inadequate TR jet. Pericardium/Pleural There is no pericardial effusion. Inferior Vena Cava Normal inferior vena cava with >50% collapse upon inspiration consistent with elevated right atrial pressure, 10 mmHg. Aorta The aortic root size at the sinus of Valsalva is normal. Left Ventricular Outflow Tract Name Value Normal LVOT 2D LVOT Diameter 2.2 cm LVOT Doppler LVOT Peak Velocity 78 cm/s LVOT Peak Gradient 2 mmHg LVOT Mean Gradient 1 mmHg LVOT VTI 19 cm LVOT Stroke Volume 74 ml LVOT CO 5.0 l/min LVOT CI 2.6 l/min/m2 Pulmonic Valve Name Value Normal RVOT Doppler RVOT Peak Velocity 39 cm/s RVOT Peak Gradient 1 mmHg PV Doppler PV Peak Velocity 75 cm/s PV Peak Gradient 2 mmHg Mitral Valve Name Value Normal MV Diastolic Function MV E Peak Velocity 50 cm/s MV A Peak Velocity 107 cm/s MV E/A 0.5 MV Decel Time (PW) 156 ms MV Annular TDI MV E/e' (Septal) 12.2 MV E/e' (Lateral) 14.0 MV E/e' (Average) 13.1 Tricuspid Valve Name Value Normal Estimated PAP/RSVP RA Pressure 10 mmHg <=5 Aortic Valve Name Value Normal AV Doppler AV Peak Velocity 94 cm/s AV Peak Gradient 4 mmHg AV Area (Cont Eq Serge) 3.2 cm2 AV DI (Serge) 0.83 AV Regurgitation 2D LVOT Area 3.9 cm2 Ventricles Name Value Normal LV Dimensions 2D/MM IVS Diastolic Thickness (2D) 0.8 cm 0.6-1.0 LVID Diastole (2D) 5.8 cm 4.2-5.8 LVIW Diastolic Thickness (2D) 1.2 cm 0.6-1.0 LVID Systole (2D) 4.9 cm 2.5-4.0 LVOT Diameter 2.2 cm LV Mass (2D Cubed) 241.27 g 88.00-224.00 LV Mass Index (2D Cubed) 125 g/m2 49-115 Relative Wall Thickness (2D) 0.41 <=0.42 LV Fractional Shortening/Ejection Fraction 2D/MM LV Fractional Shortening (2D) 16 % 25-43 LV EF (2D Teichholz) 33 % LV Diastolic Volume (4C MOD) 173 ml LV EF (4C MOD) 43 % LV Diastolic Volume (2C MOD) 183 ml LV EF (2C MOD) 40 % LV Diastolic Volume (BP MOD) 179 ml 62-150 LV Diastolic Volume Index (BP MOD) 93 ml/m2 34-74 LV Systolic Volume (BP MOD) 107 ml 21-61 LV Systolic Volume Index (BP MOD) 56 ml/m2 11-31 LV EF (BP MOD) 40 % 52-72 LV Diastolic Length (4C) 8.9 cm LV Systolic Length (4C) 7.6 cm LV Stroke Volume (4C MOD) 74 ml Atria Name Value Normal LA Dimensions LA Volume (4C A-L) 39 ml LA Volume (BP A-L) 44 ml RA Dimensions RA Area (4C) 14.3 cm2 <=18.0 Report Signatures
== END 2025-01-04 09:36 | disposition home or self-care (01) ==
LOC: ANHCARD 09:37
PROVIDERS: PCP Nurse Practitioner Family; Visit Provider Internal Medicine Pulmonary Disease
DX: R93.1 Abnormal findings on diagnostic imaging of heart and coronary circulation (principal); I42.8 Other cardiomyopathies
CPT/HCPCS: 93306

== ENCOUNTER 2025-03-10 02:18 | Day surgery (SDC) | payer BC, SELFPAY ==
[2025-02-17 10:07] VITALS: BMI 24.4
--- OUTSIDE RECORDS SUMMARY | 2025-03-10 02:20 | XMS_ITS | Data Portability ---
Author Organization [place] [facility], Main Office Address [address] [place] [address] Assessment Encounter Date Assessment Date Assessment LastModified [...] oncologist referral 2022 023 [email or web address] Hernán Puentes, [address] [place] [address], [place], [address], 11:39:25 Procedures None recorded. Surgeries None recorded. Imaging US, prostate 2022 023 [facility], [address] [place], [address], 4 12:41:53 Medication Orders ceftriaxon e 1 gram solution for injection 2022 023 [id number], [address] [place], [place], [id number], 16:30:39 Eligard 45 mg (6 month) subcutaneo us syringe 2022 023 Not available 13:14:29 Patient TargetsNo targets recorded. [...] RANDO M URINE CREAT ININE Not Available [facility] (Lab) [address] [place], [address], 10/30/2022 13:16:52 10/31/19 23 10/30/2022 MICRO ALBUM N RNDM W/CRE AT RATIO microalbumin , urine 324.2 mg/L 0.0-16 .6 high Not Available [facility] (Lab) [address] [place], [address], 10/30/2022 13:16:52 10/31/19 23 10/30/2022 MICRO ALBUM [...] VOL. 26: S94-S , 2002 Not Available [facility] (Lab) [address] [place], [address], 10/30/2022 13:16:52 10/31/19 23 10/30/2022 COMPR EHENS ERICA METAB OLIC PANEL sodium 138 mmol/ L 137-14 5 Not Available [facility] (Lab) [address] [place], [address], 10/30/2022 13:36:17 10/31/19 23 10/30/2022 COMPR EHENS ERICA METAB OLIC PANEL potassium 4.5 mmol/ L 3.5-5. 1 Not Available [facility] (Lab) [address] [place], [address], 10/30/2022 13:36:17 10/31/19 23 10/30/2022 COMPR EHENS ERICA METAB OLIC PANEL chloride 99 mmol/ L 98-107 Not Available [facility] (Lab) [address] [place], [address], 10/30/2022 13:36:17 10/31/19 23 10/30/2022 COMPR EHENS ERICA METAB OLIC PANEL carbon dioxide 31 mmol/ L 22-30 high Not Available [facility] (Lab) [address] [place], [address], 10/30/2022 13:36:17 10/31/19 23 10/30/2022 COMPR EHENS ERICA METAB OLIC PANEL anion gap 12.5 mmol/ L 14-22 low Not Available [facility] (Lab) [address] [place], [address], 10/30/2022 13:36:17 10/31/19 23 10/30/2022 COMPR EHENS ERICA METAB OLIC PANEL glucose 112 mg/dL 70-99 high Not Available [facility] (Lab) [address] [place], [address], 10/30/2022 13:36:17 10/31/19 23 10/30/2022 COMPR EHENS ERICA METAB OLIC PANEL BUN 14 mg/dL 8-19 Not Available [facility] (Lab) [address] [place], [address], 10/30/2022 13:36:17 10/31/1910/30/2022 COMPR EHENS ERICA METAB OLIC PANEL creatinine 1.02 mg/dL 0.66-1 .25 Not Available [facility] (Lab) [address] [place], [address], 10/30/2022 13:36:17 10/31/19 23 10/30/2022 COMPR EHENS ERICA METAB OLIC PANEL GFR >60 Refer ence Range : [place] ge GFR Healt hy Adult : >60 [...] or ethni c subgr oups, such as [facility] nics. Outsi de the valid ated terrell [...] calcu lator is avail able on the NKF websi te: https :[email or web address] sung.aniceto bains.o rg/pr ofess ional s/kdo qi/gf r_cal culat or Not Available [facility] (Lab) [address] [place], [address], 10/30/2022 13:36:17 10/31/19 23 10/30/2022 COMPR EHENS ERICA METAB OLIC PANEL alkaline phosphatase 59 U/L 38-126 Not Available [facility] (Lab) [address] [place], [address], 10/30/2022 13:36:17 10/31/19 23 10/30/2022 COMPR EHENS ERICA METAB OLIC PANEL alanine aminotransfe rase 19 U/L 0-50 Not Available [facility] (Lab) [address] [place], [address], 10/30/2022 13:36:17 10/31/19 23 10/30/2022 COMPR EHENS ERICA METAB OLIC PANEL aspartate aminotransfe rase 27 U/L 15-46 Not Available [facility] (Lab) [address] [place], [address], 10/30/2022 13:36:17 10/31/19 23 10/30/2022 COMPR EHENS ERICA METAB OLIC PANEL bilirubin, total 0.70 mg/dL 0.20-1 .30 Not Available [facility] (Lab) [address] [place], [address], 10/30/2022 13:36:17 10/31/19 23 10/30/2022 COMPR EHENS ERICA METAB OLIC PANEL calcium 9.5 mg/dL 8.4-10 .2 Not Available [facility] (Lab) [address] [place], [address], 10/30/2022 13:36:17 10/31/19 23 10/30/2022 COMPR EHENS ERICA METAB OLIC PANEL total protein 8.2 g/dL 6.3-8. 2 Not Available [facility] (Lab) [address] [place], [address], 10/30/2022 13:36:17 10/31/19 23 10/30/2022 COMPR EHENS ERICA METAB OLIC PANEL albumin 4.4 g/dL 3.0-4. 4 Not Available [facility] (Lab) [address] [place], [address], 10/30/2022 13:36:17 10/31/19 23 10/30/2022 COMPR EHENS ERICA METAB OLIC PANEL globulin 3.8 g/dL 2.6-4. 2 Not Available [facility] (Lab) [address] [place], [address], 10/30/2022 13:36:17 10/31/19 23 10/30/2022 COMPR EHENS ERICA METAB OLIC PANEL A/G ratio 1.2 ratio 1.0-2. 0 Not Available [facility] (Lab) [address] [place], [address], 10/30/2022 13:36:17 10/31/19 23 10/30/2022 LIPID PANEL cholesterol 162 mg/dL 140-19 9 NIH BASILIA NSUS RECOM MENDA TION FOR ASHER STERO L: ADULT CHILD LOW RISK: <200 <170 BORDE RLINE : <200- 239 ----- HIGH RISK: >240 >200 Not Available [facility] (Lab) [address] [place], [address], 10/30/2022 13:36:36 10/31/19 23 10/30/2022 LIPID PANEL triglyceride s 45 mg/dL 0-150 NIH [place]ILIA NSUS REPOR T RECOM MENDA TION FOR TRIGL YCERI TAYLOR: ADULT CHILD LOW RISK: <150 ----- BODER LINE: 150-1 99 ----- HIGH RISK: >200 ----- Not Available [facility] (Lab) [address] [place], [address], 10/30/2022 13:36:36 10/31/19 23 10/30/2022 LIPID PANEL HDL cholesterol 84 mg/dL 40- Not Available [facility] (Lab) [address] [place], [address], 10/30/2022 13:36:36 10/31/19 23 10/30/2022 LIPID PANEL [...] WILL NOT BE REPOR ANTONIO. Not Available [facility] (Lab) [address] [place], [address], 10/30/2022 13:36:36 10/31/1910/30/2022 T4 FREE free T4 1.15 NG/dL 0.78-2 .19 Not Available [facility] (Lab) [address] [place], [address], 10/30/2022 14:06:33 10/31/1910/30/2022 T3 FREE free T3 3.4 pg/mL 2.77-5 .27 Not Available [facility] (Lab) [address] [place], [address], 10/30/2022 14:06:44 10/31/19 23 10/30/2022 HEMOG LOBIN A1C HA1C 8.1 % 4.0-6. 0 high Diabe wyatt Scree john Crite jenny: <5.7% Consi stent with absen ce of diabe wyatt 5.7-6 .4% Consi stent with incre ased risk for diabe wyatt (pred iabet es) >OR=6 .5% Consi stent with diabe wyatt REFER ENCE: Diabe wyatt Care 2016, 39(Moss ppl.1 ):s13 -s22 Not Available [facility] (Lab) [address] [place], [address], 10/30/2022 14:09:55 10/31/19 23 10/30/2022 TSH thyroid-stim ulating hormone 0.381 uIU/m L 0.465- 4.680 low Not Available [facility] (Lab) [address] [place], [address], 10/30/2022 14:10:07 10/31/19 23 10/31/2022 THYRO ID PEROX IDASE (TPO) AB thyroid peroxidase (tpo) Ab <9 IU/mL 0-34 Perfo rmed at: [id number] [place], [place] [id number] Lab Direc tor: David rapp PhD, Phone : [phone] Not Available [facility] (Lab) [address] [place], [address], 10/31/2022 08:18:49 10/31/19 23 10/31/2022 CA 19-9 Ca 19-9 28 U/mL 0-35 Tifafny Diagn ostic s Elect tiffany milum inesc ence Immun oassa y (ECLI A) . Value s obtai amara with diffe rent assay metho ds or kits canno t be used inter ignacio eably . Resul ts canno t be inter prete d as absol pati evide nce of the prese nce or absen ce of katy garcia se. Perfo rmed at: [facility] [address] [facility] [address] [place], [place] [id number] Lab Direc tor: David rapp PhD, Phone : [phone] Not Available [facility] (Lab) [address] [place], [address], 10/31/2022 09:15:10 10/31/19 23 10/31/2022 C-PEP TIDE, SERUM C-peptide 1.3 NG/mL 1.1-4. 4 C-Pep tide refer ence inter juan carlos is for fasti ng patie nts. Perfo rmed at: [facility] [address] [facility] [address] Lab Direc tor: David rapp PhD, Phone : [phone] Not Available [facility] (Lab) [address] [place], [address], 10/31/2022 11:13:01 10/31/19 23 11/01/2022 THYRO ID STIM IMMUN OGLOB ULIN thyroid stim immunoglobul in <0.10 IU/L 0.00-0 .55 Perfo rmed at: - [address] [address] Lab Direc tor: Geri franco MD, Phone : [phone] Not Available [facility] (Lab) [address] [place], [address], 11/01/2022 17:08:32 10/31/19 23 11/04/2022 CATHY-6 5 AUTOA NTIBO DY cathy-65 autoantibody <5.0 U/mL 0.0-5. 0 Perfo rmed at: [address] [address] Lab Direc tor: Geri franco MD, Phone : [phone] Not Available [facility] (Lab) [address] [place], [address], 11/04/2022 14:12:55 10/31/19 23 11/07/2022 INSUL IN/IA 2 AUTOA NTIBO DIES ia-2 autoantibodi es <7.5 U/mL Refer ence Range : <7.5 Negat erica > or = 7.5 Posit erica Perfo rmed at: [facility] [employer] [address] [place] [address] Lab Direc tor: Dez prakash MD, Phone : [phone] Not Available [facility] (Lab) [address] [place], [address], 11/07/2022 21:07:44 10/11/19 23 10/10/2022 CT, abdom en + pelvi s, w/wo contr ast No observ ation record ed. [address] [facility], [place], [address], 10/22/2022 10:52:11 10/13/19 23 10/10/2022 NM, bone scan, whole body No observ ation record ed. [address] [place], [address], 10/22/2022 10:52:12 12/23/19 23 12/21/2022 MRI, pelvi s, w/wo contr ast No observ ation record ed. [email or web address] [address], [place], [address], 12/24/2022 16:49:27 12/31/19 23 12/30/2022 US, renal No observ ation record ed. [email or web address] [address], [place], [address], 12/31/2022 13:39:05 01/02/2012/30/2022 imagi ng/di agnos tic resul t No observ ation record ed. [email or web address] [address] [address], [place], [address], 07/01/2023 15:26:10 05/27/19 24 05/27/2023 XR, chest , 2 view No observ ation record ed. [address] [address], [place], [address], 06/04/2023 11:58:34 05/27/19 24 05/27/2023 US, doppl er, venou s No observ ation record ed. [address] [address], [place], [address], 06/04/2023 11:59:47 01/18/20 25 01/04/2025 US, echoc ardio gram No observ ation record ed. [email or web address] Not Available 10/23/ 2025 11:31:40 Result Notes None recorded. Problems Name Problem SNOMED Code Status Onset Date Resolution Date Notes Provider Name and Address Organization Details Recorded Time Elevated blood-pressure reading without diagnosis of hypertension 885934934 Active 2022 DAMI Islas [address], [address], [place], [address], [employer] 3 10:45:54 Lipoma of skin 555950860 Active 2022 DAMI Islas [address], [address], [place], [address], [employer] 3 10:51:57 Cyst of scalp 444397885 Active 2022 DAMI Islas [address], [address], [place], [address], [employer] 3 10:52:10 Testosterone level below reference range 023020808 Active 2022 DAMI Islas [address], [address], [place], [address], [employer] 3 11:03:21 Prostate specific antigen above reference range 234279504 Active 2022 DAMI Islas [address], [address], [place], [address], [employer] 3 17:31:07 Hyperthyroidis m 12353289 Active 2022 DAMI Islas [address], [address], [place], [address], [employer] 3 17:31:30 Diabetes mellitus without complication 269988447 Active 2022 DAMI Islas [address], [place], [address], [employer] 3 17:34:35 Hemoglobin A1C - diabetic control finding 864162802 Active 2022 DAMI Islas [address], [address], [place], [address], [employer] 3 17:35:54 Uncontrolled type 2 diabetes mellitus 602079661 Active 2022 Nguyen De La Cruz MD [address], [address], [place], [address], [employer] 3 09:43:56 Dyslipidemia 757221997 Active 2022 Nguyen De La Cruz MD [address], [address], [place], [address], [employer] 3 09:44:18 Thyroid function tests abnormal 035097512 Active 2022 Nguyen De La Cruz MD [address], [address], [place], [address], [employer] 3 09:46:37 Essential hypertension 11502118 Active 2022 Nguyen De La Cruz MD [address], [address], [place], [address], [employer] 3 09:47:26 Carcinoma of prostate 908150829 Active 2022 Dany uriarte MD [address], [place], [address], [employer] 3 12:46:04 Malignant neoplasm of prostate 273534271 Active 2022 ALICIA Daniel null, [place] [employer] [facility] 3 16:11:52 Bilateral lower leg edema 435447519 Active 2023 RICHA Tan [address], [address], [place], [address], [employer] 4 12:22:15 Problem Notes None recorded. Procedures Surgical History Date Name Laterality Status Provider Name and Address Organization Details Recorded Time 3 Prostate Ultrasound completed Dany Goodman MD [address], [address], [place], [address], [employer] 11/27/2022 11:37:52 3 2. Prostate Biopsy completed Dany Goodman MD [address] [facility] [address], [place], [address], [facility] [employer] [employer] 09/11/2022 12:03:43 Imaging Results None recorded. Procedure Notes None recorded. Medical Equipment None [...] t Available Vitals Date Recorded Body height Body mass index (BMI) Body weight Body temperature Heart rate Oxygen saturation Systolic And Diastolic Provider Name and Address Organization Details Last Updated DateTime 4 177.8 cm 24.8 kg/m2 07431.4 8 g 96.8 [degF] 96 /min 98 % 140/90 mm[Hg] Libia Alexander RN [facility] 4 10:06:11 Date Recorded Body height Oxygen saturation Heart rate Body mass index (BMI) Body weight Provider Name and Address Organization Details Last Updated DateTime 10/30/2022 177.8 cm 96 % 91 /min 22.4 kg/m2 73540.41 g ALICIA Daniel [facility] 3 09:18:52 Date Recorded Body height Provider Name an d Address Organization Details Last Updated DateTime 11/27/2022 177.8 cm Valerie Bello MA [facility] [employer] [facility] 11/27/2022 10:30:11 Date Recorded Body height Body mass index (BMI) Body weight Body temperature Heart rate Oxygen saturation Systolic And Diastolic Provider Name and Address Organization Details Last Updated DateTime 3 177.8 cm 23.1 kg/m2 60698.3 7 g 97 [degF] 84 /min 97 % 142/90 mm[Hg] Adriana Bhatt RN [facility] 3 08:59:51 Date Recorded Oxygen saturation Heart rate Provider Name and Address Organization Details Last Updated DateTime 01/21/2023 97 % 92 /min Delora Salazar, [employer] [address], [place], [address], [facility] 01/21/2023 13:40:50 Date Recorded Body height Body mass index (BMI) Body weight Body temperature Heart rate Oxygen saturation Systolic And Diastolic Provider Name and Address Organization Details Last Updated DateTime 177.8 cm 23 kg/m2 19866.7 8 g 97.1 [degF] 82 /min 92 % 142/84 mm[Hg] Alice Espinosa CNA [place] [employer] [facility] 09:05:32 Social History Question Answer Notes LastModified by [employer] Details LastModified Time Tobacco Smoking Status Never Smoker Migdalia Tyson navarrete [place] [employer] [facility] 01/21/2023 08:56:17 What Is Your Level Of Caffeine Consumption? Occasional Information not available 07/01/2022 In The 14 Days Before Symptom Onset, Have You Had Close Contact With A Laboratory-confirm ed COVID-19 While That Case Was Ill? No [email or web address] Information n ot available 01/21/2023 In The 14 Days Before Symptom Onset, Have You Had Close Contact With A Person Who Is Under Investigation For COVID-19 While That Person Was Ill? No [email or web address] Information not available 01/21/2023 What Type Of Diet Are You Following? REGULAR Information n ot available 07/01/2022 Have You Recently Traveled Abroad? No Information not available 01/21/2023 Do You Have Any Dietary Restrictions? No [email or web address] Information not available 01/21/2023 Sex: Unknown Functional Status Question Answer Note LastModified by [email or web address] ion Details LastModified Time Do you use any illicit or recreational drugs? No [email or web address] Information not available 01/21/2023 Do you or have you ever used any other forms of tobacco or nicotine? No [email or web address] Information not available 01/21/2023 What is your level of alcohol consumption? None Information not available 07/01/2022 What is your exercise level? None Information not available 07/01/2022 Mental Status None recorded. Family History Nothing Reported Notes:father-cancer Medical History Condition Response DIABETES, TYPE Y SURGERY Y Past Encounters Encounter ID Performer Location Encounter Start Date Encounter Closed Date Diagnosis/Indication Diagnosis SNOMED-CT Code Diagnosis ICD10 Code Diagnosis IMO Codes Diagnosis Note [id number] DAMI Islas [address] [place] [address] 07/01/2022 10:22:59 07/01/2022 12:54:11 Elevated blood-pressure reading without diagnosis of hypertension 011354569 R03.0 New finding on examBP in office today is 154/80Asym ptomatic at this time.Encou raged pt to increase water intake, reduce caffeine intake, exercise regularly, decrease/e liminate sodium intake, work on weight loss and stress reductionW ill continue to monitor closely and consider medication if appropriat e. Lipoma of skin 916487107 D17.30 ChronicAdv ised this is benign finding, no tx indicated at this time. Cyst of scalp 143857162 L72.9 Chronic3-4 cm palpable, irregularl y shaped cyst on occiput.Wi ll refer to derm for further evaluation /tx. Screening for disorder 842435640 Z13.9 Z13.1 Z13.29 Z13.0 Z13.220 Testostero ne level below reference range 810770724 R89.1 [id number] DAMI Islas [address] [place] [address] 07/03/2022 17:07:19 07/03/2022 18:01:57 Prostate specific antigen above reference range 394344874 R97.20 New finding on labs 10.00Pt is asymptomat ic at this timeWill refer to urology for further evaluation tx. Hyperthyroidism 98365969 E05.90 New finding on labsTSH 0.461In light of pts new onset DM and elevated PSA, recommend pt be seen by endocrinol ogy.Concer amara that blood sugar, thyroid dysfunctio n, and elevated psa may indicate an underlying autoimmune cause. Hemoglobin A1C - diabetic control finding 910402059 R73.09 New finding on labsUnable to assess if pt is DMI or DMII at this time.Will start on metformin pending endocrinol ogy appt and monitor closely until pt is seen.New orders for testing supplies sent to pharm. Pt advised to test and document fasting blood sugars daily. [id number] Dany Goodman MD [facility] U[facility] [address] [address] 07/31/2022 08:51:02 07/31/2022 09:42:55 Prostate specific antigen above reference range 508479724 R97.20 Patient with elevated PSA and abnormal prostate exam worrrisome for prostate caner. Suggest trans rectal US and biopsy of the prostate. He is agreeable. Discussed procedure risks and alternativ es. [id number] Dany Goodman MD [facility] U[facility] [address] [address] 08/14/2022 09:15:56 08/28/2022 09:06:31 Prostate specific antigen above reference range 714613894 R97.20 Patient with elevated PSA and abnormal prostate exam worrrisome for prostate caner. Suggest trans rectal US and biopsy of the prostate. He is agreeable. Discussed procedure risks and alternativ es. [id number] Nguyen De La Cruz MD [facility] [place] [address] [place] [address] 08/15/2022 09:10:39 08/15/2022 09:54:14 Uncontrolled type 2 diabetes mellitus 803338547 E11.65 a1c 14% new onset- no recent [...] meter at return visit for review. Dyslipidemia 059044102 E 78.5 send for lipids and thyroid panel. Thyroid fu nction tests abnormal 234485327 R94.6 TSH suppressed but patient likely having acute reactive changes based on PSA/A1C changes- will repeat full thyroid panel along with antibodies to screen for autoimmune thyroiditi s. patient does not exhibit hyperthyro id symptoms other than mild hypertensi on. Essential hypertension 37199516 I10 Trial on losartan 50 mg daily. Spent up to 45 minutes preparing to see the patient (eg, review of tests), obtaining and/or reviewing separately obtained history, performing a medically appropriat e examinatio n and evaluation , counseling and educating the patient, ordering medication s, tests, along with documentin g clinical informatio n in the electronic health record, independen tly interpreti ng results and communicat ing results to the patient. RTC in 2 months. Patient was provided a handwritte n lab order which contains our fax number. If he chooses to go outside of the [facility] to obtain labwork he was [...] ing. Thank you for this consultati on. [id number] DAMI Islas [facility] Warren mendez [address] [facility] [address] [place] [address] 08/28/2022 08:53:38 08/28/2022 09:48:34 Hemoglobin A1C - diabetic control finding 416567418 R73.09 Improving, per pt report of sugars [...] meter at return visit for review. Hyperthyroidism 79592408 E05.90 Finding on labsTSH 0.461 (07/01/22)In light [...] Prostate s pecific antigen above reference range 901554700 R97.20 Finding on labs 10.00 (07/01/22)Pt is [...] es. Testostero ne level below reference range 092747644 R89.1 New finding on labstotal 250.1, free 4.83 (07/01/22)No interventi on at this time as pt is being managed by endocrinol ogy for DM and thyroid dysfunctio n and seeing urology for elevated PSA. Will consider testostero ne replacemen t in the future if appropriat e. [id number] Dany Goodman MD [facility] U[facility] [address] [address] 09/11/2022 11:19:32 09/11/2022 12:07:16 [id number] [facility] [address] [address] 09/25/2022 11:55:25 09/25/2022 12:38:22 Carcinoma of prostate 400251699 C61 Prostate cancer intermedia te risk will need staging PMSA PET scanschedu le cancer consult after scan. [id number] Dany Goodman MD [facility] [address] [address] 10/30/2022 09:08:20 10/30/2022 09:26:18 Malignant neoplasm of prostate 553899014 C61 [id number] Dany Goodman MD [facility] U[facility] [address] [address] 11/27/2022 10:18:15 11/27/2022 10:53:06 Malignant neoplasm of prostate 941222161 C61 The patient had the gold markers placed today and was given a 6 month Eligard injection. To follow up with radiation oncology. [id number] Renetta Nicole MD [facility] Primary Care Warren mendez [address] [facility] [address] [place] [address] 12/25/2022 08:54:32 12/25/2022 09:50:12 Hemoglobin A1C - diabetic control finding 890468193 R73.09 Improving, per pt report of sugars [...] meter at return visit for review. Hyperthyroidism 47252841 E05.90 Finding on labsTSH 0.461 (07/01/22)Pe r [...] s. Testostero ne level below reference range 025889057 R89.1 total 250.1, free 4.83 (07/01/22)No interventi on at this time as pt is being managed by endocrinol ogy for DM and thyroid dysfunctio n and seeing oncology for prostate cancer. Will consider testostero ne replacemen t in the future if appropriat e. Malignant neoplasm of prostate 447112869 C61 New problemPt reports plan is for [...] (6 month) subcutaneo us syringe 45 mg [id number] Renetta Nicole MD [facility] Primary Care [facility] [address] [facility] [address] [place] [address] 01/21/2023 08:55:56 01/21/2023 09:31:57 Malignant neoplasm of prostate 707663032 C61 Establishe d with oncologyPl an is [...] 3 months. Diabetes m ellitus without complication [id number] E11.9 Recommend continuing to check BG frequently and watch for hypoglycem ia signs like hunger, irritabili ty, and lightheade dness. Suspect once tumor shrinks, his average BG will decrease and will be able to downgrade antiglycem ic agents. [id number] RICHA Tan [facility] Primary Care [facility] [address] [facility] [address] [place] [address] 04/23/2023 12:11:36 05/20/2023 12:16:41 Bilateral lower leg edema [id number] R60.0 Carcinoma of prostate 25 [id number] C61 Health Concerns Section Related Observation LastModified by Organization Detai ls LastModified Time None Recorded Concern Status LastModified by Organization Details LastModified Time None Recorded Advance Directives Directive None Recorded Payers Insurance Date Sequence Insurance Name Policy Number Policy Mock Covered Member ID Mock Member ID Guarantor Name 07/01/2023 1 [employer] ([place]) [id number] Bulmaro Doshi [id number] Bulmaro Doshi 07/01/2023 [facility] Bulmaro Doshi SELF SELF Bulmaro Doshi Notes Date Note Type Note Provider Name and Address Organization Details Recorded Time 10/30/2022 text/html follow up for prostate cancer. bone scan and abd. CT no mets. Dany Goodman MD [address] [facility], [facility] [address], [place], [address], [facility] [employer] 10/30/2022 10:31:38 12/25/2022 text/html 12/25/22: 1. Pt in office for 3 month f/u appt. Pt [...] like it's getting any bigger or changing. Pipe Salazar, [employer] [address] [facility], [place], [address], [place] [facility] 12/26/2022 14:41:24 01/21/2023 text/html Malignant tumor of [...] farxiga 5 mg daily. DAMI Islas [address] [facility], [facility] [address], [place], [address], [place] [facility] 01/21/2023 13:57:52
[2025-03-10 12:15] VITALS: BP 155/79; PULSE 81; RESP 19; TEMP 36.4; O2SAT 100; BMI 22.9
[2025-03-10] MEDS: LACTATED RINGERS 1,000 ML 150 ML IV CONT (12:18)
--- NOTE | 2025-03-10 12:20 | WPDANESEPPF ---
Anes - Initial Pre Proc Eval Procedure: Operation Date: 03/10/25 12:30 Proposed Procedures p Diagnostic Colonoscopy - London Oro MD Date/Time: 03/10/25 12:20 Surgeon: London Oro MD Pre Op Diagnosis: Radiation proctitis Patient Data Age: 64 Gender: M Height: 1.78 m Weight: 72.5 kg Last Vital Signs Temp 36.4 C 03/10/25 12:15 Pulse 81 03/10/25 12:15 Resp 19 03/10/25 12:15 BP 155/79 H 03/10/25 12:15 Pulse Ox 100 03/10/25 12:15 O2 Del Method Room Air 03/10/25 12:15 Allergies Allergy/AdvReac Type Severity Reaction Status Date / Time No Known Allergies Allergy Verified 03/10/25 12:12 Home Medications ?Medication ?Instructions ?Recorded ?Confirmed ?Type blood sugar diagnostic (Accu-Chek #100 ea 07/24/23 02/17/25 Rx Guide test strips) blood-glucose meter (Accu-Chek #1 ea 07/24/23 02/17/25 Rx Guide Glucose Meter) lancets 30 gauge #100 ea 07/24/23 01/11/25 Rx pen needle, diabetic 32 gauge x #100 ea 09/06/24 01/11/25 Rx 5/32 metformin 500 mg tablet,extended 500 mg PO BID #180 tabs 10/10/24 03/10/25 Rx release 24 hr empagliflozin 25 mg tablet See Rx Instructions .Route 12/12/24 03/10/25 Rx (Jardiance) .COMPLEX #90 tabs rosuvastatin 10 mg tablet See Rx Instructions .Route 12/12/24 03/10/25 Rx .COMPLEX #90 tabs blood-glucose sensor (FreeStyle #6 ea 01/05/25 02/17/25 Rx Michelle 3 Plus Sensor device) lisinopril 20 mg tablet See Rx Instructions .Route 01/18/25 03/10/25 Rx .COMPLEX #30 tabs spironolactone 25 mg tablet See Rx Instructions .Route 01/18/25 03/10/25 Rx .COMPLEX #30 tabs insulin glargine 100 unit/mL (3 12 unit (0.12 mL) subcut QPM #15 mL 01/19/25 03/10/25 Rx mL) subcutaneous pen carvedilol 3.125 mg tablet See Rx Instructions .Route 02/08/25 03/10/25 Rx .COMPLEX #60 tabs Patient hx anesthesia problems: none Family hx anesthesia problems: none Results Review: All pre-operative results and documents have been reviewed as part of the pre-operative evaluation. 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 He has 2 children ages 25 and 23. He denies any significant history of alcohol drug or tobacco use. Code status: Full code Surrogate decision maker: Smoking status: Never smoker Alcohol intake: never Substance use: never Substance use type: does not use Lack of Transportation: No Lack of Food: Never True Current Housing: I Have Housing Concerned About Future Housing: No Difficulty Paying Gas/Electric Bills: No Difficulty Paying for Meds: No Currently Unemployed: No Education: High School Diploma/GED Difficulty w/ Childcare or Family Care: No Living arrangements: with family Gender identity (if verbalized by the patient): Male Sexual Orientation (if Verbalized by the Patient): Straight or Heterosexual Spiritual care concerns: No Anes - Eval Final PreProcedure Day of Procedure 03/10/25 12:20 Heart: regular rate and rhythm Lungs: clear to auscultation Airway: Mallampati scale class II Neurological: alert and oriented Last oral intake: >/= 8 hours ASA classification: III Emergent: no Anesthetic plan: proceed Anesthesia type and monitoring: general GIVS and standard monitoring Results Review: All pre-operative results and documents have been reviewed as part of the pre-operative evaluation. Informed Consent: The patient's anesthetic plan and its attendant risks and benefits were discussed with the patient/family/POA. Questions were solicited and answers provided to the satisfaction of the patient/family/POA.
--- NOTE | 2025-03-10 13:07 | PM.HPGS ---
History of Present Illness History of Present Illness Consent: Risks, benefits, and alternatives have been discussed and questions answered. Patient agrees to proceed with procedure. 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 He has 2 children ages 25 and 23. He denies any significant history of alcohol drug or tobacco use. Code status: Full code Surrogate decision maker: Smoking status: Never smoker Alcohol intake: never Substance use: never Substance use type: does not use Lack of Transportation: No Lack of Food: Never True Current Housing: I Have Housing Concerned About Future Housing: No Difficulty Paying Gas/Electric Bills: No Difficulty Paying for Meds: No Currently Unemployed: No Education: High School Diploma/GED Difficulty w/ Childcare or Family Care: No Living arrangements: with family Gender identity (if verbalized by the patient): Male Sexual Orientation (if Verbalized by the Patient): Straight or Heterosexual Spiritual care concerns: No Meds Home Medications and Allergies Home Medications ?Medication ?Instructions ?Recorded ?Confirmed ?Type blood sugar diagnostic (Accu-Chek #100 ea 07/24/23 02/17/25 Rx Guide test strips) blood-glucose meter (Accu-Chek #1 ea 07/24/23 02/17/25 Rx Guide Glucose Meter) lancets 30 gauge #100 ea 07/24/23 01/11/25 Rx pen needle, diabetic 32 gauge x #100 ea 09/06/24 01/11/25 Rx 5/32 metformin 500 mg tablet,extended 500 mg PO BID #180 tabs 10/10/24 03/10/25 Rx release 24 hr empagliflozin 25 mg tablet See Rx Instructions .Route 12/12/24 03/10/25 Rx (Jardiance) .COMPLEX #90 tabs rosuvastatin 10 mg tablet See Rx Instructions .Route 12/12/24 03/10/25 Rx .COMPLEX #90 tabs blood-glucose sensor (FreeStyle #6 ea 01/05/25 02/17/25 Rx Michelle 3 Plus Sensor device) lisinopril 20 mg tablet See Rx Instructions .Route 01/18/25 03/10/25 Rx .COMPLEX #30 tabs spironolactone 25 mg tablet See Rx Instructions .Route 01/18/25 03/10/25 Rx .COMPLEX #30 tabs insulin glargine 100 unit/mL (3 12 unit (0.12 mL) subcut QPM #15 mL 01/19/25 03/10/25 Rx mL) subcutaneous pen carvedilol 3.125 mg tablet See Rx Instructions .Route 02/08/25 03/10/25 Rx .COMPLEX #60 tabs Allergies Allergy/AdvReac Type Severity Reaction Status Date / Time No Known Allergies Allergy Verified 03/10/25 12:12 Vital Signs Vital Signs - 24 hr 03/10/25 12:15 Temperature 97.6 F Pulse Rate 81 Respiratory Rate 19 Blood Pressure 155/79 H Pulse Oximetry 100 Oxygen Delivery Room Air Exam Const: General: comfortable and no acute distress HENMT: Face/Nose/Sinus: Normal nares present Eyes: General: appearance normal, both eyes and all related structures Neck: Neck: no JVD Resp: Auscultation: clear to auscultation bilaterally Cardio: Rate: regular rate Rhythm: regular rhythm GI: Inspection: non-distended GI Palp: Yes Soft to palpation Skin: General skin exam: normal color Extrem: General: normal to inspection Psych: Mental Status: mental status grossly normal Assessment and Plan Assessment and plan (1) Blood in stool: Code(s): K92.1 - Melena Status: Acute Assessment and Plan: colonoscopy to assess if more radiation proctitis with possible APC treatment (2) Radiation proctitis: Code(s): K62.7 - Radiation proctitis Status: Acute (3) Prostate cancer: Code(s): C61 - Malignant neoplasm of prostate Status: Acute
--- NOTE | 2025-03-10 13:21 | S_PTH ---
PATIENT: Bulmaro Doshi LOC: [facility]#:[id number] AGE/SX: 64/M ROOM: RE03/10/[address]: London Oro MD : 1960 BED: DIS: 03/10/2025 SPEC #: [id number] RECD: 03/10/25 13:58 STATUS: ERIN RELeslie #: [id number] ROSA: 03/10/25 13:[address]: London Oro DEPT: [facility] Surgical RECD BY: Glenda Dubon ENTERED: 03/10/25 13:59 SP TYPE: Surgical OTHR DR: Angelica Cox APRN Tissues: A - Colon Polypectomy Procedures: Hematoxylin and Eosin Stain Gross and Microscopic Level 4
[2025-03-10 13:29] VITALS: BP 127/70; PULSE 78; RESP 17; O2SAT 100
[2025-03-10 13:39] VITALS: BP 173/94; PULSE 79; RESP 18; O2SAT 100
[2025-03-10 13:49] VITALS: BP 177/91; PULSE 74; RESP 15; O2SAT 100
== END 2025-03-10 14:01 | disposition home or self-care (01) ==
PROVIDERS: PCP Nurse Practitioner Family; Referring Provider Nurse Practitioner Family; Visit Provider Internal Medicine Gastroenterology
PROC: 0DJD8ZZ Inspection of Lower Intestinal Tract, Via Natural or Artificial Opening Endoscopic (ICD-10-PCS; CPT 45378; principal; 2025-03-10 12:30)
DX: K92.1 Melena (principal); D12.5 Benign neoplasm of sigmoid colon; K55.20 Angiodysplasia of colon without hemorrhage; K62.7 Radiation proctitis; C61 Malignant neoplasm of prostate; E11.9 Type 2 diabetes mellitus without complications
CPT/HCPCS: 45385; 45388; 82948; 88305; J2003; J2704; J7120